=== PATIENT | female | born 2000 | race Caucasian/White ===

== ENCOUNTER 2023-12-30 10:22 | Outpatient (AMB) | payer OTHER, SELFPAY ==
--- NOTE | 2023-12-30 10:35 | MHC.OFFVISPS ---
Intake Vital Signs 12/30/23 16:01 Height 5 ft 7 in Weight 132 lb Intake Visit Reasons: depression, Psychogenic nonepileptic seizure, ADHD Intake Note: She tapered herself off the zoloft as she felt it was causing mood swings and SI. since then she has been doing well overall. She reports psychogenic seizures down to once a week which is better than several times a day. she feels the adderall has helpded her be less scattered and disorganized; she is doing better in school; less overwhelmed by stress; she saw a neurologist for psychogenic seizures- neurologist was at [facility]. Dr Lott saw her- Pt had MRI and it was normal. The 24 hour EEG results is pending. She tells me she and mother were glad she did not have any brain tumor as her father of brain cancer when she was very young. Pt had EEG and MRI. Initial EEG and MRI were normal; Pt feeling more hopeful. No SI or HI she is sleeping well- 7-8 hours a night Physical Plant Employee Required: No Allergies No Known Allergies Allergy (Verified 12/30/23 10:36) Medication List - Last Reconciled 12/30/23 by Kaylah Alaniz APRN amitriptyline mg PO dextroamphetamine-amphetamine 10 mg ER 1 cap PO QAM oxybutynin chloride ER 10 mg PO DAILY HPI- Psychiatric Chief Complaint: depression, Psychogenic nonepileptic seizure, ADHD Intake Note: 23 year old single female college student presenting with history of depression, anxiety, ADHD and psychogenic seizure disorder in need of continued medication management evaluation HPI Narrative: pt here for follow up for anxiety, depression, ADHD and psychgenic seizures She tapered herself off the zoloft as she felt it was causing mood swings and SI. since then she has been doing well overall. She reports psychogenic seizures down to once a week which is better than several times a day. she feels the adderall has helpded her be less scattered and disorganized; she is doing better in school; less overwhelmed by stress; she saw a neurologist for psychogenic seizures- neurologist was at [facility]. Dr Lott saw her- Pt had MRI and it was normal. The 24 hour EEG results is pending. She tells Past Psychiatric History: IN 2021, reports falling/tripping on stage at school; she hit head and went to ED She waited for several hours but wasn't seen and left because she didn't want wait longer. she reports no LOC. she does report a panic attack after she fell. She also had a syncopal episode 2 weeks later- she reports high stress with academics and friends; increased conflict with friends; felt bullied and ostracized by her roommates. Pt reports frequently forgetting to 30 mg amitriptyline and only taking 20mg at bedtime; she is struggling with eating and staying hydrated. this likely contributed to the syncopal episode; she will follow up with PCP. no problems with sleep . No SI or HI. expresses hope for future. She was ultimately dx with psychogenic seizures. Pt seen outpatient since 2019 by this web content writer - came to treatment reporting the following: depression, grief, sleep disruption, body image distortion, disordered eating always in special education classes; learned well with support; pt is dyslexic, cognitive disorder, executive functioning disorder. very high anxiety, always stressed and worried. achieving high but high cost. constantly anxious, talking to people makes her anxious. difficulty being around others don't like to be around others. feels depressed, sad. passive SI foggy thinking; night terrors- 1-2 times a week sometimes wake with fear; eating do symptoms- started losing a lot of weight - was restricting food. Began before covid. excessive working out. eating only 900 leonel per day and work out for 4 hours. was feeling faint. Working on eating better- seeing a wallet assembler. eating approx 1200 leonel. Continues outpatient therapy with Aubree Jules [facility] Pt started therapy with Aurora Jules at age 11 after losing her father due to brain cancer. Pts grief complicated by father's violent behavior from brain cancer. psychogenic seizures Seizure description: reports aura, weakness, can lay herself down or in seated position, brief memory loss during- last few seconds to 20 minutes. Duration of seizure: 10 Seizure frequency: once a week Exacerbated by: stress Age of seizure onset: 22 Family history of seizures: No History of febrile seizures: No Tongue biting: No Postictal confusion: No Drug levels: none Subjective Subjective Subjective Medication Compliance: Yes Side effects from medications: Yes (zoloft worsen mood and SI ) Review of Systems Medical Review of Systems: unchanged Review of Systems Review of Systems Yes all other systems are reviewed and are negative Mental Status Exam Mental Status Exam Narrative: Well-developed, well-nourished, in NAD. Alert and oriented x4. General appearance, well groomed, appropriately dressed for season and age. Musculoskeletal: No involuntary movements noted, motor activity calm, posture within normal limits. Manner/behavior: Calm, cooperative. Speech: Fluent, unimpaired, normal rate volume and rhythm. Mood: anxious. Affect: Mood congruent. Thought process/associations: Linear Thought content: Normal Delusions: None. Hallucinations: None. Suicidality/self destructive behavior: No SI, no intent or plan Homicidality/violence: none. Reliability: Good Judgment: Fair Insight: Fair MSK exam: Normal ambulation, no cogwheeling or rigidity noted. Assessment and Plan Assessment & Plan (1) Psychogenic nonepileptic seizure: Status: Acute Code(s): F44.5 - Conversion disorder with seizures or convulsions (2) ADHD (attention deficit hyperactivity disorder): Status: Acute Code(s): F90.9 - Attention-deficit hyperactivity disorder, unspecified type (3) Dyslexia: Status: Acute Code(s): R48.0 - Dyslexia and alexia (4) Generalized anxiety disorder: Status: Acute Code(s): F41.1 - Generalized anxiety disorder (5) Social anxiety disorder: Status: Acute Code(s): F40.10 - Social phobia, unspecified Plan pt is 23 yo old student with KATY, social anxiety, ADHD, and psychogenic seizure disorder in context of increased stress since becoming college student and navigating changing relationship with family and new friends at school. Plan continue amitriptyline continue adderall continue learning coping skills to reduce stress return in one month Medications: New amitriptyline 30 mg (3 x 10 mg) PO BEDTIME 30 days 90 tabs 1RF dextroamphetamine-amphetamine 10 mg ER 1 cap PO QAM 30 days 30 caps 0RF Counseling and coordination of Care Pt. Self Management counseling: Exercise, Maintenance-social rhythm, Muscle relaxation, Sleep hygiene and General coping skills Medication management counseling: Effectiveness, Side effects, Dosing range, Duration, Drug interaction and Adherence Diagnosis and Prognosis Counseling: Accuracy of diagnosis, Prognosis over time, Impact of diagnosis on life functions, Impact of family relationship, Problematic behaviors secondary to diagnosis and Adequacy of current interventions Details: I spent 45 minutes reviewing the record, seeing the patient and documenting in the medical record. Counseling provided to the patient/caregiver as outlined below. Addressed patient/caregiver concerns regarding current medication regime including effective adherence. Addressed patient/caregiver concerns regarding diagnosis and prognosis including accuracy of diagnosis, prognosis over time, impact of diagnosis. Addressed patient/caregiver concerns regarding impact of recent stressors. [facility] Social History: lives with mother; Pt at [facility]; one of 3 sibs; one sibling has autism; father from brain tumor when pt age 11. Substance History: none Trauma History: loss of father age 11 after illness Coding Level of Care Code Est Pt Level 5 (76710) Diagnoses Psychogenic nonepileptic seizure F44.5 ADHD (attention deficit hyperactivity disorder) F90.9 Dyslexia R48.0 Generalized anxiety disorder F41.1 Social anxiety disorder F40.10 Time Spent (min) 45
== END 2023-12-30 10:37 | disposition home or self-care (01) ==
LOC: HO.HOP 10:22
PROVIDERS: PCP Pediatrics Adolescent Medicine; Visit Provider Clinical Nurse Specialist Psychiatric/Mental Health
DX: F44.5 Conversion disorder with seizures or convulsions (principal); F90.9 Attention-deficit hyperactivity disorder, unspecified type; R48.0 Dyslexia and alexia; F41.1 Generalized anxiety disorder; F40.10 Social phobia, unspecified
CPT/HCPCS: 99215

== ENCOUNTER → 2023-12-30 10:22 | Outpatient (BNVA) | payer OTHER, SELFPAY | PROVIDERS: PCP Pediatrics Adolescent Medicine; Visit Provider Clinical Nurse Specialist Psychiatric/Mental Health ==

== ENCOUNTER 2024-01-27 10:27 | Outpatient (AMB) | payer OTHER, SELFPAY ==
--- NOTE | 2024-01-27 09:08 | A.OFFPSYCH_ITS ---
Intake Intake Visit Reasons: depression, Conversion disorder with seizures or convulsions, KATY (generalized anxiety disorder), Dysthymia, ADHD follow-up Operating Cost Clerk Required: No Allergies No Known Allergies Allergy (Verified 12/30/23 10:36) Medication List - Last Reconciled 01/27/24 by Kaylah Alaniz APRN amitriptyline 30 mg (3 x 10 mg) PO BEDTIME 30 days dextroamphetamine-amphetamine 10 mg ER 1 cap PO QAM 30 days oxybutynin chloride ER 10 mg PO DAILY HPI- Psychiatric Chief Complaint: depression, Conversion disorder with seizures or convulsions, KATY (generalized anxiety disorder), Dysthymia, ADHD follow-up HPI Narrative: Pt reports mood fair; she reports increased stress with school work, family conflict, and conflict with her BF. Pt reports she was home for a week for spring and her brother who has Bipolar Disorder was off his meds and she and he had an argument which was very difficult; Her BF is drinking increased alcohol and is emotionally unavailable. Pt reports being verbally impulsive at times, having more trouble staying on taks; more trouble focusing and getting tasks and ADLs done. She denies SI or HI. no psychosis. no medical changes Past Psychiatric History: [place] 2021, dx with psychogenic seizures. Pt seen outpatient since 2018 by this television script writer - came to treatment reporting the following: depression, grief, sleep disruption, body image distortion, disordered eating always in special education classes; learned well with support; pt is dyslexic, cognitive disorder, executive functioning disorder. very high anxiety, always stressed and worried. achieving high but high cost. constantly anxious, talking to people makes her anxious. difficulty being around others don't like to be around others. feels depressed, sad. passive SI foggy thinking; night terrors- 1-2 times a week sometimes wake with fear; eating do symptoms- started losing a lot of weight - was restricting food. Began before covid. excessive working out. eating only 900 leonel per day and work out for 4 hours. was feeling faint. Working on eating better- seeing a director of aviation. eating approx 1200 leonel. Continues outpatient therapy with Aubree Jules [facility] Pt started therapy with Aurora Jules at age 11 after losing her father due to brain cancer. Pts grief complicated by father's violent behavior from brain cancer. Panic attacks: Yes Agoraphobia: No Separation anxiety disorder: No Social phobia: No Specific phobia: No Hypochondriasis: No Body dysmorphic disorder: No Obsessive compulsive disorder: No Generalized anxiety: Yes Post traumatic stress disorder: Yes Previous psychiatric history: No Previous inpatient psychiatric hospitalization: No Other previous psychiatric treatment programs: none History of suicidal ideation: Yes History of suicide attempt: No Medically hospitalized: No History of self injurious behavior: No History of violence: No Current/previous psychiatrist: dudley Current/previous therapist: aubree CLINTON Subjective Subjective Subjective Medication Compliance: Yes Side effects from medications: No Review of Systems Medical Review of Systems: unchanged Mental Status Exam Mental Status Exam Patient Appearance: Well Grooomed and Appropriate Patient Orientation: Person, Place, Time and Situation Level of Consciousness: Awake, Appropriate and Alert Patient Behavior: Appropriate and Cooperative Mood Description: Anxious and Sad Affect Description: Anxious, Flat and Sad Patient Cognition Impaired: No Ability to Follow Directions: Good Speech Pattern: Clear Memory Description: Intact Hallucinations: None Delusions: Not Present Thought Process: Intact and Goal Oriented Thought Content: positive for Intact and positive for Goal Oriented Judgement: Fair Assessment and Plan Assessment & Plan (1) Generalized anxiety disorder: Status: Acute Code(s): F41.1 - Generalized anxiety disorder (2) Conversion disorder with seizures or convulsions: Code(s): F44.5 - Conversion disorder with seizures or convulsions (3) Dysthymia: Code(s): F34.1 - Dysthymic disorder Plan continue medications as prescribed Add adderall IR 5mg take 1/2 to 1 daily as needed for school work/task completion. Call TW if moodiness or anxiety increases Medications: New dextroamphetamine-amphetamine 5 mg (Adderall) Partial Fill upon patient request. 5 mg PO DAILY 30 tabs 0RF Refilled amitriptyline 30 mg (3 x 10 mg) PO BEDTIME 30 days 90 tabs 1RF dextroamphetamine-amphetamine 10 mg ER 1 cap PO QAM 30 days 30 caps 0RF Counseling and coordination of Care Pt. Self Management counseling: Breathing, Exercise, Maintenance-social rhythm, Mod caffeine/ETOH intake, Sleep hygiene and Behavior activation Medication management counseling: Effectiveness, Side effects, Dosing range, Duration, Drug interaction and Adherence Diagnosis and Prognosis Counseling: Accuracy of diagnosis, Prognosis over time, Impact of diagnosis on life functions, Impact of family relationship, Problematic behaviors secondary to diagnosis and Adequacy of current interventions Details: I spent 30] minutes reviewing the record, seeing the patient and documenting in the medical record. Counseling provided to the patient/caregiver as outlined below. Addressed patient/caregiver concerns regarding current medication regime including effective adherence. Addressed patient/caregiver concerns regarding diagnosis and prognosis including accuracy of diagnosis, prognosis over time, impact of diagnosis. Addressed patient/caregiver concerns regarding impact of recent stressors. [facility] Social History: lives with mother; Pt at [facility]; one of 3 sibs; one sibling has autism; father from brain tumor when pt age 11. Substance History: none Trauma History: loss of father age 11 after illness Coding Level of Care Code Est Pt Level 4 (69362) Diagnoses Generalized anxiety disorder F41.1 Conversion disorder with seizures or convulsions F44.5 Dysthymia F34.1
== END 2024-01-27 12:07 | disposition home or self-care (01) ==
LOC: HO.HOP 10:27
PROVIDERS: PCP Pediatrics Adolescent Medicine; Visit Provider Clinical Nurse Specialist Psychiatric/Mental Health
DX: F41.1 Generalized anxiety disorder (principal); F44.5 Conversion disorder with seizures or convulsions; F34.1 Dysthymic disorder
CPT/HCPCS: 99214

== ENCOUNTER → 2024-01-27 10:27 | Outpatient (BNVA) | payer OTHER, SELFPAY | PROVIDERS: PCP Pediatrics Adolescent Medicine; Visit Provider Clinical Nurse Specialist Psychiatric/Mental Health ==

== ENCOUNTER 2024-02-24 11:02 | Outpatient (AMB) | payer OTHER, SELFPAY ==
--- NOTE | 2024-02-24 11:04 | A.OFFPSYCH_ITS ---
Intake Vital Signs 02/24/24 11:30 Height 5 ft 7 in Weight 150 lb Intake Visit Reasons: depression, Anxiety, ADHD Central Lab Technician Required: No Allergies No Known Allergies Allergy (Verified 12/30/23 10:36) Medication List - Last Reconciled 02/24/24 by Kaylah Alaniz APRN amitriptyline 30 mg (3 x 10 mg) PO BEDTIME 30 days dextroamphetamine-amphetamine 10 mg ER 1 cap PO QAM 30 days dextroamphetamine-amphetamine 5 mg (Adderall) 5 mg PO DAILY oxybutynin chloride ER 10 mg PO DAILY HPI- Psychiatric Chief Complaint: depression, Anxiety, ADHD Intake Note: pt seeen for follow up re: Depression, anxiety, ADHD HPI Narrative: pt reports doing well overall but has had mote stress lately as the demands at school have increased; she is finishing up finals; she volunteers for many activities and sometimes is overbooked; she is very hard on self about her perf ormance. she has trouble coping when the stress is high. it is hard for her to rest. She reports reducing the amitriptyline to 50 mg at bedtime due to 75 mg making her very sleepy. she denies SI or HI. no hallucinations. compliant with meds and feel they are helpful. she continues with therapy. Shereports she has had 2 episodes of seizure like behavior when very stressed about obligations /activities she had and fearing she wouldn''t meet her standards. Past Psychiatric History: [place] 2021, dx with psychogenic seizures. Pt seen outpatient since 2018 by this customs entry writer - came to treatment reporting the following: depression, grief, sleep disruption, body image distortion, disordered eating always in special education classes; learned well with support; pt is dyslexic, cognitive disorder, executive functioning disorder. very high anxiety, always stressed and worried. achieving high but high cost. constantly anxious, talking to people makes her anxious. difficulty being around others don't like to be around others. feels depressed, sad. passive SI foggy thinking; night terrors- 1-2 times a week sometimes wake with fear; eating do symptoms- started losing a lot of weight - was restricting food. Began before covid. excessive working out. eating only 900 leonel per day and work out for 4 hours. was feeling faint. Working on eating better- seeing a review appraiser. eating approx 1200 leonel. Continues outpatient therapy with Aubree Jules [facility] Pt started therapy with Aurora Jules at age 11 after losing her father due to brain cancer. Pts grief complicated by father's violent behavior from brain cancer. Subjective Subjective Subjective Medication Compliance: Yes Side effects from medications: No Review of Systems Medical Review of Systems: unchanged Review of Systems Review of Systems Yes all other systems are reviewed and are negative Mental Status Exam Mental Status Exam Patient Appearance: Well Grooomed and Appropriate Patient Orientation: Person, Place, Time and Situation Level of Consciousness: Awake Patient Behavior: Appropriate and Cooperative Mood Description: Anxious Affect Description: Anxious Patient Cognition Impaired: No Ability to Follow Directions: Good Speech Pattern: Clear and Soft-Spoken Memory Description: Intact Hallucinations: None Delusions: Not Present Thought Process: Intact Thought Content: positive for Intact and positive for Goal Oriented Judgement: Fair Telehealth Telehealth Telehealth Platform: Telephone Location of provider rendering services: practice address Location of patient: other ([facility] ) Patient Identification confirmed using: Name, : Yes Telehealth method: video Patient verbally consented to treatment: Yes Patient verbally consented to billing insurance company: Yes Patient informed of any privacy concerns related to visit: Yes Minutes spent on Phone/Video with Pt.: 30 Assessment and Plan Assessment & Plan (1) ADHD (attention deficit hyperactivity disorder): Status: Acute Qualifiers: Attention deficit-hyperactivity disorder type: predominantly inattentive Qualified Code(s): F90.0 - Attention-deficit hyperactivity disorder, predominantly inattentive type Code(s): F90.9 - Attention-deficit hyperactivity disorder, unspecified type (2) Generalized anxiety disorder: Status: Acute Code(s): F41.1 - Generalized anxiety disorder (3) Social anxiety disorder: Status: Acute Code(s): F40.10 - Social phobia, unspecified (4) Psychogenic nonepileptic seizure: Status: Acute Code(s): F44.5 - Conversion disorder with seizures or convulsions Plan continue meds as prescribed continue therapy Medications: Changed From amitriptyline 30 mg (3 x 10 mg) PO BEDTIME 30 days 90 tabs 1RF To amitriptyline 20 mg (2 x 10 mg) PO BEDTIME 30 days 60 tabs 2RF Refilled dextroamphetamine-amphetamine 10 mg ER 1 cap PO QAM 30 days 30 caps 0RF dextroamphetamine-amphetamine 5 mg (Adderall) Partial Fill upon patient request. 5 mg PO DAILY 30 tabs 0RF Counseling and coordination of Care Pt. Self Management counseling: Maintenance-social rhythm, Mindfulness, Mod caffeine/ETOH intake, Sleep hygiene, Behavior activation, Cognitive restructuring and General coping skills Medication management counseling: Effectiveness, Side effects, Duration, Drug interaction and Adherence Diagnosis and Prognosis Counseling: Accuracy of diagnosis, Prognosis over time, Impact of diagnosis on life functions, Impact of family relationship, Problematic behaviors secondary to diagnosis and Adequacy of current interventions Details: I spent 33 minutes reviewing the record, seeing the patient and documenting in the medical record. Counseling provided to the patient/caregiver as outlined below. Addressed patient/caregiver concerns regarding current medication regime including effective adherence. Addressed patient/caregiver concerns regarding diagnosis and prognosis including accuracy of diagnosis, prognosis over time, impact of diagnosis. Addressed patient/caregiver concerns regarding impact of recent stressors. [facility] Social History: lives with mother; Pt at [facility]; one of 3 sibs; one sibling has autism; father from brain tumor when pt age 11. Substance History: none Trauma History: loss of father age 11 after illness Coding Level of Care Code Tele Est Pt Level 4 (46146) Diagnoses Attention deficit hyperactivity disorder (ADHD), predominantly inattentive type F90.0 Attention deficit-hyperactivity disorder type: predominantly inattentive Generalized anxiety disorder F41.1 Social anxiety disorder F40.10 Psychogenic nonepileptic seizure F44.5
== END 2024-02-24 11:29 | disposition home or self-care (01) ==
LOC: HO.HOP 11:02
PROVIDERS: PCP Pediatrics Adolescent Medicine; Visit Provider Clinical Nurse Specialist Psychiatric/Mental Health
DX: F90.0 Attention-deficit hyperactivity disorder, predominantly inattentive type (principal); F41.1 Generalized anxiety disorder; F40.10 Social phobia, unspecified; F44.5 Conversion disorder with seizures or convulsions
CPT/HCPCS: 99214

== ENCOUNTER → 2024-02-24 11:02 | Outpatient (BNVA) | payer OTHER, SELFPAY | PROVIDERS: PCP Pediatrics Adolescent Medicine; Visit Provider Clinical Nurse Specialist Psychiatric/Mental Health ==

== ENCOUNTER 2024-03-20 10:44 | Outpatient (AMB) | payer OTHER, SELFPAY ==
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
== END 2024-03-20 11:40 | disposition home or self-care (01) ==
LOC: HO.HOP 10:44
PROVIDERS: PCP Pediatrics Adolescent Medicine; Visit Provider Clinical Nurse Specialist Psychiatric/Mental Health
DX: F40.10 Social phobia, unspecified (principal); F44.5 Conversion disorder with seizures or convulsions; F41.1 Generalized anxiety disorder; F90.0 Attention-deficit hyperactivity disorder, predominantly inattentive type
CPT/HCPCS: 99214

== ENCOUNTER → 2024-03-20 10:44 | Outpatient (BNVA) | payer OTHER, SELFPAY | PROVIDERS: PCP Pediatrics Adolescent Medicine; Visit Provider Clinical Nurse Specialist Psychiatric/Mental Health ==

== ENCOUNTER 2024-05-22 08:59 | Outpatient (AMB) | payer OTHER, SELFPAY ==
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
== END 2024-05-22 11:23 | disposition home or self-care (01) ==
LOC: HO.HOP 08:59
PROVIDERS: PCP Pediatrics Adolescent Medicine; Visit Provider Clinical Nurse Specialist Psychiatric/Mental Health
DX: F44.5 Conversion disorder with seizures or convulsions (principal); F40.10 Social phobia, unspecified; F41.1 Generalized anxiety disorder; R48.0 Dyslexia and alexia; F90.0 Attention-deficit hyperactivity disorder, predominantly inattentive type
CPT/HCPCS: 99214

== ENCOUNTER → 2024-05-22 08:59 | Outpatient (BNVA) | payer OTHER, SELFPAY | PROVIDERS: PCP Pediatrics Adolescent Medicine; Visit Provider Clinical Nurse Specialist Psychiatric/Mental Health ==

== ENCOUNTER 2024-07-09 09:22 | Outpatient (AMB) | payer OTHER, SELFPAY ==
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
== END 2024-07-09 09:24 | disposition home or self-care (01) ==
LOC: HO.HOP 09:22
PROVIDERS: PCP Pediatrics Adolescent Medicine; Visit Provider Clinical Nurse Specialist Psychiatric/Mental Health
DX: F40.10 Social phobia, unspecified (principal); F44.5 Conversion disorder with seizures or convulsions; F41.1 Generalized anxiety disorder; R48.0 Dyslexia and alexia; F90.0 Attention-deficit hyperactivity disorder, predominantly inattentive type
CPT/HCPCS: 99214

== ENCOUNTER → 2024-07-09 09:22 | Outpatient (BNVA) | payer OTHER, SELFPAY | PROVIDERS: PCP Pediatrics Adolescent Medicine; Visit Provider Clinical Nurse Specialist Psychiatric/Mental Health ==

== ENCOUNTER 2024-09-10 11:31 | Outpatient (AMB) | payer OTHER, SELFPAY ==
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
== END 2024-09-10 11:33 | disposition home or self-care (01) ==
LOC: HO.HOP 11:31
PROVIDERS: PCP Pediatrics Adolescent Medicine; Visit Provider Clinical Nurse Specialist Psychiatric/Mental Health
DX: F40.10 Social phobia, unspecified (principal); F44.5 Conversion disorder with seizures or convulsions; F41.1 Generalized anxiety disorder; F90.0 Attention-deficit hyperactivity disorder, predominantly inattentive type
CPT/HCPCS: 99214

== ENCOUNTER → 2024-09-10 11:31 | Outpatient (BNVA) | payer OTHER, SELFPAY | PROVIDERS: PCP Pediatrics Adolescent Medicine; Visit Provider Clinical Nurse Specialist Psychiatric/Mental Health ==

== ENCOUNTER 2024-10-09 10:12 | Outpatient (AMB) | payer OTHER, SELFPAY ==
--- NOTE | 2024-10-09 09:44 | MHC.OFFVISPS ---
Intake Intake Visit Reasons: depression Novelty Dipper Required: No Allergies No Known Allergies Allergy (Verified 12/30/23 10:36) Medication List - Last Reconciled 10/09/24 by Kaylah Alaniz APRN amitriptyline 30 mg (3 x 10 mg) PO BEDTIME betamethasone dipropionate 0.05% appl topical dextroamphetamine-amphetamine 10 mg ER 1 cap PO QAM 30 days dextroamphetamine-amphetamine 5 mg (Adderall) 5 mg PO DAILY lorazepam 1 mg PO BID PRN 15 days valacyclovir 500 mg PO BID HPI- Psychiatric Chief Complaint: depression HPI Narrative: Pt reports she is stable; she has high stress due to end of the projects and working 2 jobs. she is coping well overall; she is compliant with medications;no side effects. she reports 2 episodes of seizure like activity; she was with her BF and was sitting down when it happened so she did not get hurt; she says it was a few weeks ago when she was under higher stress and probably working too much. Past Psychiatric History: [place] 2021, dx with psychogenic seizures. Pt seen outpatient since 2018 by this account underwriter - came to treatment reporting the following: depression, grief, sleep disruption, body image distortion, disordered eating always in special education classes; learned well with support; pt is dyslexic, cognitive disorder, executive functioning disorder. very high anxiety, always stressed and worried. achieving high but high cost. constantly anxious, talking to people makes her anxious. difficulty being around others don't like to be around others. feels depressed, sad. passive SI foggy thinking; night terrors- 1-2 times a week sometimes wake with fear; eating do symptoms- started losing a lot of weight - was restricting food. Began before covid. excessive working out. eating only 900 leonel per day and work out for 4 hours. was feeling faint. Working on eating better- seeing a vice president lending. eating approx 1200 leonel. Continues outpatient therapy with Aubree Jules [facility] Pt started therapy with Aurora Jules at age 11 after losing her father due to brain cancer. Pts grief complicated by father's violent behavior from brain cancer. Subjective Subjective Subjective Medication Compliance: Yes Side effects from medications: No Review of Systems Medical Review of Systems: unchanged Mental Status Exam Mental Status Exam Patient Appearance: Well Grooomed and Appropriate Patient Orientation: Person, Place, Time and Situation Level of Consciousness: Awake and Appropriate Patient Behavior: Appropriate Mood Description: Anxious Affect Description: Anxious Patient Cognition Impaired: No Ability to Follow Directions: Good Speech Pattern: Clear and Appropriate Memory Description: Intact Hallucinations: None Delusions: Not Present Thought Process: Intact and Goal Oriented Thought Content: positive for Intact and positive for Goal Oriented Judgement: Good Telehealth Telehealth Telehealth Platform: Other (please specify) ([employer]) Location of provider rendering services: practice address Location of patient: address on file Patient Identification confirmed using: Name, : Yes Telehealth method: video Patient verbally consented to treatment: Yes Patient verbally consented to billing insurance company: Yes Patient informed of any privacy concerns related to visit: Yes Minutes spent on Phone/Video with Pt.: 30 Assessment and Plan Assessment & Plan (1) Fatigue: Status: Acute Code(s): R53.83 - Other fatigue (2) Psychogenic nonepileptic seizure: Status: Acute Code(s): F44.5 - Conversion disorder with seizures or convulsions (3) Social anxiety disorder: Status: Acute Code(s): F40.10 - Social phobia, unspecified (4) Generalized anxiety disorder: Status: Acute Code(s): F41.1 - Generalized anxiety disorder (5) Dyslexia: Status: Acute Code(s): R48.0 - Dyslexia and alexia (6) ADHD (attention deficit hyperactivity disorder): Status: Acute Qualifiers: Attention deficit-hyperactivity disorder type: predominantly inattentive Qualified Code(s): F90.0 - Attention-deficit hyperactivity disorder, predominantly inattentive type Code(s): F90.9 - Attention-deficit hyperactivity disorder, unspecified type Medications: Changed From dextroamphetamine-amphetamine 10 mg ER 1 cap PO QAM 30 days 30 caps 0RF To dextroamphetamine-amphetamine 10 mg ER for ADHD 1 cap PO QAM 60 caps 0RF 60 days From dextroamphetamine-amphetamine 5 mg (Adderall) Partial Fill upon patient request. 5 mg PO DAILY 30 tabs 0RF To dextroamphetamine-amphetamine 5 mg (Adderall) Partial Fill upon patient request. For ADHD 5 mg PO DAILY 60 tabs 0RF 60 days Refilled amitriptyline 30 mg (3 x 10 mg) PO BEDTIME 90 tabs 3RF Orders: Orders Complete Blood Count Auto Diff 10/09/24 R53.83 - Other fatigue Comprehensive Gaffney. Panel Fast 10/09/24 F44.5 - Conversion disorder with seizures or convulsions Counseling and coordination of Care Pt. Self Management counseling: Maintenance-social rhythm, Mod caffeine/ETOH intake, General coping skills and Problem solving Medication management counseling: Effectiveness, Side effects, Dosing range, Duration, Drug interaction and Adherence Diagnosis and Prognosis Counseling: Accuracy of diagnosis, Prognosis over time, Impact of diagnosis on life functions, Impact of family relationship, Problematic behaviors secondary to diagnosis and Adequacy of current interventions Details: I spent [] minutes reviewing the record, seeing the patient and documenting in the medical record. Counseling provided to the patient/caregiver as outlined below. Addressed patient/caregiver concerns regarding current medication regime including effective adherence. Addressed patient/caregiver concerns regarding diagnosis and prognosis including accuracy of diagnosis, prognosis over time, impact of diagnosis. Addressed patient/caregiver concerns regarding impact of recent stressors. [facility] Social History: lives with mother; Pt at [facility]; one of 3 sibs; one sibling has autism; father from brain tumor when pt age 11. Substance History: none Trauma History: loss of father age 11 after illness Coding Level of Care Code Tele Est Pt Level 4 (15970) Diagnoses Fatigue R53.83 Psychogenic nonepileptic seizure F44.5 Social anxiety disorder F40.10 Generalized anxiety disorder F41.1 Dyslexia R48.0 Attention deficit hyperactivity disorder (ADHD), predominantly inattentive type F90.0 Attention deficit-hyperactivity disorder type: predominantly inattentive
--- OUTSIDE RECORDS SUMMARY | 2024-10-09 10:14 | XMS_ITS ---
Author Name [facility] Organization Unknown History of Medication Use Medication Directions Dispensed Refills Start Date End Date Status valACYclovirTakeNo d ate recordedNo form recordedNo frequency recordedNo route recordedNo set duration recordedNo set duration amount recordedactiveNo dosage strength recordedNo dosage strength units of measure recorded 06/08/20 active LORazepamTakeNo date recordedNo form recordedNo frequency recordedNo route recordedNo set duration recordedNo set duration amount recordedactiveNo dosage strength recordedNo dosage strength units of measure recorded 06/08/20 active azithromycinTake 1 tablet (oral) 1 time per day for 5 days (Take 2 tablets day [id number] time per [id number] 06/08/20 active oxyBUTYnin chlorideTakeNo date recordedNo form recordedNo frequency recordedNo route recordedNo set duration recordedNo set duration amount recordedactiveNo dosage strength recordedNo dosage strength units of measure recorded 06/08/20 active AdderalLTakeNo date recordedNo form recordedNo frequency recordedNo route recordedNo set duration recordedNo set duration amount recordedactiveNo dosage strength recordedNo dosage strength units of measure recorded 06/08/20 active amitriptylineTakeNo date recordedNo form recordedNo frequency recordedNo route recordedNo set duration recordedNo set duration amount recordedactiveNo dosage strength recordedNo dosage strength units of measure recorded 06/08/20 active LORazepam (ATIVAN) 2 MG/ML injection Starting on Sat04/27/24 at 2135, For 1 Naheed Thomas: cabinet override 04/30/20 completed potassium chloride ER tablet 40 mEq 40 mEq, Oral, Once, On Sat04/28/24 at 0000, For 1 doseDo not crush or chew tablet.?To make a liquid dissolution from a tablet: ??1) Place the whole tablet(s) in approximately ? ? ? cup of water (4 fluid ounces). ??2) Allow approximately 2 minutes for the tablet(s) to disintegrate. ??3) Stir for about quinn 07/04/20 24 completed LORazepam (ATIVAN) 2 MG/ML injection 1 mg 1 mg, Intravenous, Once, On Sat04/27/24 at 2145, For 1 dose 04/30/20 24 completed diphenhydrAMINE (BENADRYL) 25 mg capsule Take 25 mg by mouth every 6 (six) hours as needed for itching (uses for sleep stopped taking in oct). 04/30/20 24 active ketorolac (TORADOL) injection 15 mg 15 mg, Intravenous, Once, On Sat04/28/24 at 0000, For 1 dose 04/30/20 24 completed LORazepam (ATIVAN) 1 MG tablet Take 1 tablet (1 mg total) by mouth every 6 (six) hours as needed for anxiety. 04/30/20 active potassium chloride ER (K-DUR,KLOR-CON) tablet 20 mEq Take 1 tablet (20 mEq total) by mouth 2 (two) times a day for 7 days. 04/30/20 active sodium chloride 0.9% bolus (NS) 1,000 mL 1,000 mL, Intravenous, at 1,000 mL/hr, Once, On Sat04/27/24 at 2100, For 1 dose 04/30/20 24 completed acetaminophen (TYLENOL) tablet 650 mg 650 mg, Oral, Once, On Sat04/28/24 at 0000, For 1 dose 04/30/20 24 completed albuterol (PROVENTIL) nebulizer solution 2.5 mg 2.5 mg, Nebulization, Once, On Sat04/27/24 at 2100, For 1 dose 04/30/20 24 completed dextroamphetamine-a mphetamine (ADDERALL XR) 10 MG extended release capsule Take 10 mg by mouth daily 04/13/20 22 active amitriptyline (ELAVIL) 10 MG tablet Take 20 mg by mouth daily 04/13/20 22 active cyproheptadine (PERIACTIN) 4 mg tablet Take 4 mg by mouth after dinner 04/13/20 22 active Problems Problem Status Onset Date Problem Type Date of Resolution Source *Contact/suspected exposure COVID-19 active 2024-06-06 ProblemAct [facility] Pharyngitis, acute streptococcal active 2024-06-06 ProblemAct [facility] Fibromyalgia active ProblemAct [facility] Herpesviral infection, unspecified active ProblemAct [facility] Migraine without aura, not intractable, without status migrainosus active ProblemAct [facility] COVID-19 active 2024-06-06 ProblemAct [facility] NE Mild anemia active EncounterDiagnosisAct [facility] Attention-deficit hyperactivity disorder, unspecified type active ProblemAct [facility] Hypokalemia active EncounterDiagnosisAct [facility] Seizure disorder (HCC) active EncounterDiagnosisAct [facility]
== END 2024-10-09 10:12 | disposition home or self-care (01) ==
LOC: HO.HOP 10:12
PROVIDERS: PCP Pediatrics Adolescent Medicine; Visit Provider Clinical Nurse Specialist Psychiatric/Mental Health
DX: F44.5 Conversion disorder with seizures or convulsions (principal); F40.10 Social phobia, unspecified; F41.1 Generalized anxiety disorder; R48.0 Dyslexia and alexia; F90.0 Attention-deficit hyperactivity disorder, predominantly inattentive type
CPT/HCPCS: 99214

== ENCOUNTER → 2024-10-09 10:12 | Outpatient (BNVA) | payer OTHER, SELFPAY | PROVIDERS: PCP Pediatrics Adolescent Medicine; Visit Provider Clinical Nurse Specialist Psychiatric/Mental Health ==

== ENCOUNTER 2024-12-28 10:16 | Outpatient (AMB) | payer OTHER, SELFPAY ==
--- NOTE | 2024-12-28 10:06 | MHC.OFFVISPS ---
Intake Intake Visit Reasons: depression General Forecaster Required: No Allergies No Known Allergies Allergy (Verified 12/30/23 10:36) Medication List - Last Reconciled 12/28/24 by Kaylah Alaniz APRN amitriptyline 30 mg (3 x 10 mg) PO BEDTIME betamethasone dipropionate 0.05% appl topical dextroamphetamine-amphetamine 10 mg ER 1 cap PO QAM 60 days dextroamphetamine-amphetamine 5 mg (Adderall) 5 mg PO DAILY 60 days lorazepam 1 mg PO BID PRN 15 days valacyclovir 500 mg PO BID HPI- Psychiatric Chief Complaint: depression HPI Narrative: Pt reports being very sick with viral infection and then bacterial pneumonia and sinusitis for several weeks; she has been feeling a bit better fro 4-5 days. she was on antibiotics; she reports mood good mostly because she feels better physically; she has had more anxiety; she has not been using the lorazepam; she is avoiding talking to her professors due to anxiety; no psychogenic seizures, no SI or HI; sleep is fair- some restlessness while sleeping. Past Psychiatric History: [place] 2021, dx with psychogenic seizures. Pt seen outpatient since 2018 by this chart writer - came to treatment reporting the following: depression, grief, sleep disruption, body image distortion, disordered eating always in special education classes; learned well with support; pt is dyslexic, cognitive disorder, executive functioning disorder. very high anxiety, always stressed and worried. achieving high but high cost. constantly anxious, talking to people makes her anxious. difficulty being around others don't like to be around others. feels depressed, sad. passive SI foggy thinking; night terrors- 1-2 times a week sometimes wake with fear; eating do symptoms- started losing a lot of weight - was restricting food. Began before covid. excessive working out. eating only 900 leonel per day and work out for 4 hours. was feeling faint. Working on eating better- seeing a bulwark carpenter. eating approx 1200 leonel. Continues outpatient therapy with Aubree Jules [facility] Pt started therapy with Aurora Jules at age 11 after losing her father due to brain cancer. Pts grief complicated by father's violent behavior from brain cancer. Subjective Subjective Subjective Medication Compliance: Yes Side effects from medications: No Review of Systems Medical Review of Systems: unchanged Mental Status Exam Mental Status Exam Patient Appearance: Well Grooomed Patient Orientation: Person, Place, Time and Situation Level of Consciousness: Awake and Appropriate Patient Behavior: Appropriate and Cooperative Mood Description: Cheerful and Anxious Affect Description: Anxious Patient Cognition Impaired: No Ability to Follow Directions: Good Speech Pattern: Clear and Appropriate Memory Description: Intact Hallucinations: None Delusions: Not Present Thought Process: Intact and Goal Oriented Thought Content: positive for Intact and positive for Goal Oriented Judgement: Good Telehealth Telehealth Telehealth Platform: Other (please specify) ([email or web address]) Location of provider rendering services: practice address Location of patient: address on file Patient Identification confirmed using: Name, : Yes Telehealth method: video Patient verbally consented to treatment: Yes Patient verbally consented to billing insurance company: Yes Patient informed of any privacy concerns related to visit: Yes Minutes spent on Phone/Video with Pt.: 20 Assessment and Plan Assessment & Plan (1) Fatigue: Status: Acute Qualifiers: Fatigue type: postviral fatigue syndrome Qualified Code(s): G93.31 - Postviral fatigue syndrome Code(s): R53.83 - Other fatigue (2) Social anxiety disorder: Status: Acute Code(s): F40.10 - Social phobia, unspecified (3) Psychogenic nonepileptic seizure: Status: Acute Code(s): F44.5 - Conversion disorder with seizures or convulsions (4) Generalized anxiety disorder: Status: Acute Code(s): F41.1 - Generalized anxiety disorder (5) ADHD (attention deficit hyperactivity disorder): Status: Acute Qualifiers: Attention deficit-hyperactivity disorder type: predominantly inattentive Qualified Code(s): F90.0 - Attention-deficit hyperactivity disorder, predominantly inattentive type Code(s): F90.9 - Attention-deficit hyperactivity disorder, unspecified type Plan continue medications as is return in 2 months for f/u Medications: Refilled amitriptyline 30 mg (3 x 10 mg) PO BEDTIME 90 tabs 2RF dextroamphetamine-amphetamine 10 mg ER for ADHD 1 cap PO QAM 60 caps 0RF 60 days dextroamphetamine-amphetamine 5 mg (Adderall) Partial Fill upon patient request. For ADHD 5 mg PO DAILY 60 tabs 0RF 60 days lorazepam 1 mg PO BID PRN 30 tabs 1RF panic attack(s) 15 days Counseling and coordination of Care Pt. Self Management counseling: Maintenance-social rhythm, Med illness tx adherence, Mod caffeine/ETOH intake, Nutrition education and improvement and General coping skills Medication management counseling: Effectiveness, Side effects, Dosing range, Duration, Drug interaction and Adherence Diagnosis and Prognosis Counseling: Accuracy of diagnosis, Prognosis over time, Impact of diagnosis on life functions, Impact of family relationship, Problematic behaviors secondary to diagnosis and Adequacy of current interventions Details: I spent 30 minutes reviewing the record, seeing the patient and documenting in the medical record. Counseling provided to the patient/caregiver as outlined below. Addressed patient/caregiver concerns regarding current medication regime including effective adherence. Addressed patient/caregiver concerns regarding diagnosis and prognosis including accuracy of diagnosis, prognosis over time, impact of diagnosis. Addressed patient/caregiver concerns regarding impact of recent stressors. [facility] Social History: lives with mother; Pt at [facility]; one of 3 sibs; one sibling has autism; father from brain tumor when pt age 11. Substance History: none Trauma History: loss of father age 11 after illness Coding Level of Care Code Tele Est Pt Level 4 (69453) Diagnoses Postviral fatigue syndrome G93.31 Fatigue type: postviral fatigue syndrome Social anxiety disorder F40.10 Psychogenic nonepileptic seizure F44.5 Generalized anxiety disorder F41.1 Attention deficit hyperactivity disorder (ADHD), predominantly inattentive type F90.0 Attention deficit-hyperactivity disorder type: predominantly inattentive
--- OUTSIDE RECORDS SUMMARY | 2024-12-28 11:49 | XMS_ITS | Clinical Summary ---
Author Organization [facility] Address [address] [place] [address] Care Team Providers Care Noxious Weeds And Pest Inspector Name Role Phone Unavailable Primary Care Provider Unavailabl e Social History Tobacco Use Types Packs/Day Years Used Date Smoking Tobacco: Never Comments Unknown Sex and Gender Information Value Date Recorded Sex Assigned at Not on file Legal Sex Female 1:34 PM EDT Gender Identity Not on file Sexual Orientation Not on file Obstetrics History Plan of Treatment Health Maintenance Due Date Last Done Comments Gonorrhea/Chlamydia Screening 2002 HPV Vaccines (1 - 3-dose series) 2017 Meningococcal B Vacine (1 of 2 - Standard) 2018 DTaP,Tdap,and Td Vaccines (1 - Tdap) 2021 Hepatitis B Vaccines (1 of 3 - 19+ 3-dose series) 2021 Cervical Cancer Screening: P ap Smear 2023 COVID-19 Vaccine ( - 2023-2 5 season) 2024 Influenza Vaccine (#1) 2024 Depression Screening 08/10/2024 HIV Screening 08/10/2024 Hepatitis C Screening 08/10/2024 Social Influencers of Health Screening 08/10/2024 HIB Vaccines Aged Out No longer eligi ble based on patient's age to complete this topic Hepatitis A Vaccines Aged Out No long er eligible based on patient's age to complete this topic IPV Vaccines Aged Out No longer eligi ble based on patient's age to complete this topic MMR Vaccines Aged Out No longer eligi ble based on patient's age to complete this topic Meningococcal ACWY Vaccine Aged Out N o longer eligible based on patient's age to complete this topic Pneumococcal Vaccine: Pediat rics (0 to 5 Years) and At-Risk Patients (6 to 64 Years) Aged Out No longer eligible b ased on patient's age to complete this topic RSV Immunization Patients Un joaquín 20 months Aged Out No longer eligible b ased on patient's age to complete this topic Varicella Vaccines Aged Out No longer eligible based on patient's age to complete this topic
--- OUTSIDE RECORDS SUMMARY | 2024-12-28 11:49 | XMS_ITS | Clinical Summary ---
Author Organization [facility] Address [address] [place] [id number] Care Team Providers Care Model Maker Scale Name Role Phone Carl Kang MD Primary Care Provider [phone] Source Comments Please note that some or all of the patient's information could have additional privacy protections. State laws allow health care providers to render certain types of treatment to minors without parental consent. Please do not assume that this information can be shared solely by obtaining just the consent of the patient's parent/guardian. Please determine if all or part of the patient's care was rendered without parent/guardian involvement. And, if so, obtain the minor's consent prior to disclosure.[facility] Allerg[facility] Active Allergy Reactions Criticality Noted Date Comments Mold 04/02/2022 Polyoxyethylated Stearyl Alc ohol (Steareth-30) 04/02/2022 Medications amitriptyline (ELAVIL) 10 MG tablet Take 20 mg by mouth daily 01/11/2022 Active dextroamphetamin e-amphetamine (ADDERALL XR) 10 MG extended release capsule Take 10 mg by mouth daily 01/16/2022 Active cyproheptadine (PERIACTIN) 4 mg tablet Take 4 mg by mouth after dinner Active Active Problems Problem Noted Date Diagnosed Date Fibromyalgia 04/10/2022 Menorrhagia 04/10/2022 Family history of autoimmune disorder 04/10/2022 Rash and other nonspecific skin eruption 022 Social History Tobacco Use Types Packs/Day Years Used Date Smoking Tobacco: Never Assessed Other Needs Answer Date Recorded Anything else about your child you'd like help w ith? Not on file 07/12/2023 Share good news about positive changes: Not on f ile 07/12/2023 Comments No Sex and Gender Information Value Date Recorded Sex Assigned at Not on file Legal Sex Female 11:28 AM EDT Gender Identity Not on file Sexual Orientation Not on file Last Filed Vital Signs Vital Sign Reading Time Taken Comments Blood Pressure 115/75 04/02/2022 11:30 AM EDT Pulse 88 04/02/2022 11:30 AM EDT Temperature 36.7 ??C (98 ??F) 04/02/2022 11: 30 AM EDT Respiratory Rate - - Oxygen Saturation - - Inhaled Oxygen Concentration - - Weight 65.3 kg (143 lb 15.4 oz) 022 11:30 AM EDT Height 167.6 cm (5' 6 ) 04/02/2022 11:3 0 AM EDT Body Mass Index 23.24 04/02/2022 11:30 AM EDT Plan of Treatment Health Maintenance Due Date Last Done Comments DTaP/TDAP/TD VACCINES (1 - Tdap) 2009 ADOLESCENT HIV SCREENING 2015 COVID-19 Vaccine (2023-2 5 season) 2024 INFLUENZA (#1) 2024 NIRSEVIMAB VACCINES UNDER 8 MONTHS Aged Out No longer eligible based on patient's age to complete this topic Insurance [place] [id number] Care Teams Model Maker Scale Relationship Specialty Start Date End Date Carl Kang MD [address] [facility] [place] [id number] PCP - General Adolescent Medicine 01/09/22
--- OUTSIDE RECORDS SUMMARY | 2024-12-28 11:49 | XMS_ITS | Clinical Summary ---
Author Organization [facility] Address [address] [place] [address] Care Team Providers Care Staffing Branch Manager Name Role Phone Unavailable Primary Care Provider Unavailabl e Allergies No known active allergies Medications Medication Sig Dispensed Refills Start Date End Date Status diphenhydrAMINE (BENADRYL) 25 mg capsule Take 25 mg by mouth every 6 (six) hours as needed for itching (uses for sleep stopped taking in oct). 0 Active LORazepam (ATIVAN) 1 MG tablet Take 1 tablet (1 mg total) by mouth every 6 (six) hours as needed for anxiety. 12 tablet 0 04/28/2024 Active Active Problems No known active problems Social History Tobacco Use Types Packs/Day Years Used Date Smoking Tobacco: Never Sex and Gender Information Value Date Recorded Sex Assigned at Female 04/27/2024 9:27 PM EDT Gender Identity Not on file Sexual Orientation Not on file Job Start Date Occupation Industry Not on file Not on file Not on file Last Filed Vital Signs Vital Sign Reading Time Taken Comments Blood Pressure 119/72 04/27/2024 9:39 PM EDT Pulse 92 04/27/2024 9:39 PM EDT Temperature 36.8 ??C (98.2 ??F) 04/27/2024 9:39 PM ED T Respiratory Rate 15 04/27/2024 9:39 PM EDT Oxygen Saturation 100% 04/27/2024 9:39 PM EDT Inhaled Oxygen Concentration - - Weight 45 kg (99 lb 3.3 oz) 04/27/2024 8:43 PM E DT Height 165.1 cm (5' 5 ) 09/18/2015 9:27 PM EST Body Mass Index - - Plan of Treatment Health Maintenance Due Date Last Done Comments Hepatitis B Vaccines (1 of 3 - 3-dose series) 2002 Hepatitis C Screening 2002 COVID-19 Vaccine (#1) 2002 Depression Screening 2014 Gonorrhea and Chlamydia Screening 2015 Preventative Health Evaluation 2020 DTap / Tdap / Td (1 - Tdap) 2021 Cervical Cancer Screening (P ap Smear) 2023 Influenza Vaccine (#1) 2024 Pneumococcal Vaccine Aged Out No long er eligible based on patient's age to complete this topic RSV Ped < 20 months Aged Out No longe r eligible based on patient's age to complete this topic
== END 2024-12-28 10:17 | disposition home or self-care (01) ==
LOC: HO.HOP 10:16
PROVIDERS: PCP Pediatrics Adolescent Medicine; Visit Provider Clinical Nurse Specialist Psychiatric/Mental Health
DX: F40.10 Social phobia, unspecified (principal); G93.31 Postviral fatigue syndrome; F44.5 Conversion disorder with seizures or convulsions; F41.1 Generalized anxiety disorder; F90.0 Attention-deficit hyperactivity disorder, predominantly inattentive type
CPT/HCPCS: 98004

== ENCOUNTER 2025-03-08 10:37 | Outpatient (AMB) | payer OTHER, SELFPAY ==
--- NOTE | 2025-03-08 09:55 | MHC.OFFVISPS ---
Intake Intake Visit Reasons: depression Allergies No Known Allergies Allergy (Verified 12/30/23 10:36) Medication List - Last Reconciled 03/08/25 by Kaylah Alaniz APRN amitriptyline 30 mg (3 x 10 mg) PO BEDTIME betamethasone dipropionate 0.05% appl topical dextroamphetamine-amphetamine 10 mg ER 1 cap PO QAM 60 days dextroamphetamine-amphetamine 5 mg (Adderall) 5 mg PO DAILY 60 days lorazepam 1 mg PO BID PRN 15 days valacyclovir 500 mg PO BID HPI- Psychiatric Chief Complaint: depression HPI Narrative: pt reports improvement in mood and functioning; she reports she will graduate from college next week. she reports some stress off and on over past few weeks; her mother's moods are still difficult to tolerate but pt coping well. Pt is future oriented and has an merchandising internship planned for summer. she is med compliant ; she reports no side effects; she reports no psychogenic seizures in months. She denies SI or HI Past Psychiatric History: [place], dx with psychogenic seizures. Pt seen outpatient since 2018 by this insurance underwriter - came to treatment reporting the following: depression, grief, sleep disruption, body image distortion, disordered eating always in special education classes; learned well with support; pt is dyslexic, cognitive disorder, executive functioning disorder. very high anxiety, always stressed and worried. achieving high but high cost. constantly anxious, talking to people makes her anxious. difficulty being around others don't like to be around others. feels depressed, sad. passive SI foggy thinking; night terrors- 1-2 times a week sometimes wake with fear; eating do symptoms- started losing a lot of weight - was restricting food. Began before covid. excessive working out. eating only 900 leonel per day and work out for 4 hours. was feeling faint. Working on eating better- seeing a shop laborer. eating approx 1200 leonel. Continues outpatient therapy with Aubree Jules [facility] Pt started therapy with Aurora Jules at age 11 after losing her father due to brain cancer. Pts grief complicated by father's violent behavior from brain cancer. Subjective Subjective Subjective Medication Compliance: Yes Side effects from medications: No Review of Systems Medical Review of Systems: unchanged Mental Status Exam Mental Status Exam Patient Appearance: Well Grooomed and Appropriate Patient Orientation: Person, Place, Time and Situation Level of Consciousness: Awake and Appropriate Patient Behavior: Appropriate, Talkative and Good Eye Contact Mood Description: Happy and Cheerful Affect Description: Happy and Cheerful Patient Cognition Impaired: No Ability to Follow Directions: Good Speech Pattern: Clear and Appropriate Memory Description: Intact Hallucinations: None Delusions: Not Present Thought Process: Intact and Goal Oriented Thought Content: positive for Intact and positive for Goal Oriented Judgement: Fair Telehealth Telehealth Telehealth Platform: Other (please specify) ([email or web address]) Location of provider rendering services: practice address Location of patient: address on file Patient Identification confirmed using: Name, : Yes Telehealth method: video Patient verbally consented to treatment: Yes Patient verbally consented to billing insurance company: Yes Patient informed of any privacy concerns related to visit: Yes Minutes spent on Phone/Video with Pt.: 30 Assessment and Plan Assessment & Plan (1) ADHD (attention deficit hyperactivity disorder): Status: Acute Qualifiers: Attention deficit-hyperactivity disorder type: predominantly inattentive Qualified Code(s): F90.0 - Attention-deficit hyperactivity disorder, predominantly inattentive type Code(s): F90.9 - Attention-deficit hyperactivity disorder, unspecified type (2) Dyslexia: Status: Acute Code(s): R48.0 - Dyslexia and alexia (3) Generalized anxiety disorder: Status: Acute Code(s): F41.1 - Generalized anxiety disorder (4) Psychogenic nonepileptic seizure: Status: Acute Code(s): F44.5 - Conversion disorder with seizures or convulsions (5) Social anxiety disorder: Status: Acute Code(s): F40.10 - Social phobia, unspecified Plan continue medications as per below follow up in 2 months Medications: Refilled dextroamphetamine-amphetamine 5 mg (Adderall) Partial Fill upon patient request. For ADHD 5 mg PO DAILY 60 tabs 0RF 60 days lorazepam 1 mg PO BID PRN 30 tabs 1RF panic attack(s) 15 days amitriptyline 30 mg (3 x 10 mg) PO BEDTIME 90 tabs 2RF dextroamphetamine-amphetamine 10 mg ER for ADHD 1 cap PO QAM 60 caps 0RF 60 days Counseling and coordination of Care Pt. Self Management counseling: Maintenance-social rhythm, Nutrition education and improvement, Sleep hygiene and General coping skills Medication management counseling: Effectiveness, Side effects, Dosing range, Duration, Drug interaction and Adherence Diagnosis and Prognosis Counseling: Accuracy of diagnosis, Prognosis over time, Impact of diagnosis on life functions, Impact of family relationship, Problematic behaviors secondary to diagnosis and Adequacy of current interventions Details: I spent 35 minutes reviewing the record, seeing the patient and documenting in the medical record. Counseling provided to the patient/caregiver as outlined below. Addressed patient/caregiver concerns regarding current medication regime including effective adherence. Addressed patient/caregiver concerns regarding diagnosis and prognosis including accuracy of diagnosis, prognosis over time, impact of diagnosis. Addressed patient/caregiver concerns regarding impact of recent stressors. [facility] Social History: lives with mother; Pt at [facility]; one of 3 sibs; one sibling has autism; father from brain tumor when pt age 11. Substance History: none Trauma History: loss of father age 11 after illness Coding Level of Care Code Tele Est Pt Level 4 (05568) Diagnoses Attention deficit hyperactivity disorder (ADHD), predominantly inattentive type F90.0 Attention deficit-hyperactivity disorder type: predominantly inattentive Dyslexia R48.0 Generalized anxiety disorder F41.1 Psychogenic nonepileptic seizure F44.5 Social anxiety disorder F40.10
--- OUTSIDE RECORDS SUMMARY | 2025-03-08 11:23 | XMS_ITS | Clinical Summary ---
Author Organization [facility] Address [address] [place] [address] Care Team Providers Care Tire Center Manager Name Role Phone Unavailable Primary Care [...]
--- OUTSIDE RECORDS SUMMARY | 2025-03-08 11:23 | XMS_ITS | Clinical Summary ---
Author Organization [facility] Address [address] [place] [address] Care Team Providers Care Poultry Helper Name Role Phone Jenn Yates MD Primary Care Provider [phone] Allergies No known active allergies Medications doxycycline (MONODOX) 100 MG capsuleIndicati ons:Tick bite of right knee, initial encounter Take 2 capsules (200 mg total) by mouth 1 time. 2 capsule 02/28/20 25 Active Problems No known active problems Encounters Date Type Department Care Team Description 02/27/2025 2:35 PM EDT Office Visit [facility] [address] [place] [address] Leonard Jenkins MD Servello, Aldo R II, PA-C Tick bite of right knee, initial encounter (Primary Dx) 02/27/2025 Travel from Last 3 Months Social History Tobacco Use Types Packs/Day Years Used Date Smoking Tobacco: Never Assessed Comments Unknown Sex and Gender Information Value Date Recorded Sex Assigned at Not on file Legal Sex Female 2:30 PM EDT Gender Identity Not on file Sexual Orientation Not on file Last Filed Vital Signs Vital Sign Reading Time Taken Comments Blood Pressure 114/72 02/27/2025 2:49 PM EDT Pulse 62 02/27/2025 2:49 PM EDT Temperature 36.4 ??C (97.6 ??F) 02/27/2025 2:49 PM ED T Respiratory Rate 20 02/27/2025 2:49 PM EDT Oxygen Saturation 99% 02/27/2025 2:49 PM EDT Inhaled Oxygen Concentration - - Weight - - Height - - Body Mass Index - - Plan of Treatment Health Maintenance Due Date Last Done Comments Hepatitis C Virus Screening 2002 HIV Screening 2015 HPV Vaccines (1 - 3-dose series) 2017 DTaP/Tdap/Td Vaccines (1 - Tdap) 2021 Hepatitis B Vaccines (1 of 3 - 19+ 3-dose series) 2021 Pap Smear (Ages 21-65) 2023 COVID-19 Vaccine ( season) 2024 09/01/2022, 10/24/2021, 03/09/2021, Additional history exists Influenza Vaccine 05/28/2025 Pneumococcal Vaccine: Pediatric (0-5 Years) and At-Risk Patients (6 to 49 Years) Aged Out No longer eligible based on patient's age to complete [place] [id number] [facility] Care Teams Poultry Helper Relationship Specialty Start Date End Date Jenn Yates MD [address] [place], [place] [address] [address] PCP - General Internal Medicine 02/27/25
--- OUTSIDE RECORDS SUMMARY | 2025-03-08 11:23 | XMS_ITS | Clinical Summary ---
Author Organization [facility] ity Address [address] [place] [address] Care Team Providers Care Counter Hop Name Role Phone Unavailable Primary Care Provider [...] (1 - 3-dose series) 2017 Meningococcal B Vaccine (1 o f 2 - Standard) 2018 DTaP,Tdap,and Td Vaccines (1 - Tdap) 2021 Hepatitis B Vaccines (1 of 3 - 19+ 3-dose series) 2021 Cervical Cancer Screening: P ap Smear 2023 COVID-19 Vaccine ( - 2023-2 5 season) 2024 Depression Screening 08/10/2024 HIV Screening 08/10/2024 Hepatitis C Screening 08/10/2024 Social Influencers of Health Screening 08/10/2024 Influenza Vaccine (Season Ended) 2025 HIB Vaccines Aged Out No longer eligi [...]
== END 2025-03-08 10:38 | disposition home or self-care (01) ==
LOC: HO.HOP 10:37
PROVIDERS: PCP Pediatrics Adolescent Medicine; Visit Provider Clinical Nurse Specialist Psychiatric/Mental Health
DX: F90.0 Attention-deficit hyperactivity disorder, predominantly inattentive type (principal); R48.0 Dyslexia and alexia; F41.1 Generalized anxiety disorder; F44.5 Conversion disorder with seizures or convulsions; F40.10 Social phobia, unspecified
CPT/HCPCS: 98006

== ENCOUNTER 2025-05-10 10:37 | Outpatient (AMB) | payer OTHER, SELFPAY ==
--- NOTE | 2025-05-10 10:16 | MHC.OFFVISPS ---
Intake Intake Visit Reasons: depression Solid Tire Tuber Machine Operator Required: No Allergies No Known Allergies Allergy (Verified 12/30/23 10:36) Medication List - Last Reconciled 05/10/25 by Kaylah Alaniz APRN amitriptyline 30 mg (3 x 10 mg) PO BEDTIME betamethasone dipropionate 0.05% appl topical dextroamphetamine-amphetamine 10 mg ER 1 cap PO QAM 60 days dextroamphetamine-amphetamine 5 mg (Adderall) 5 mg PO DAILY 60 days lorazepam 1 mg PO BID PRN 15 days valacyclovir 500 mg PO BID HPI- Psychiatric Chief Complaint: depression HPI Narrative: pt reports mood and functioning stable; she has had some low mood 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 She is med compliant; she reports no side effects; she reports no psychogenic seizures in months. She denies SI or HI. She does describe possible hypoglycemia; she has seen her PCP and had bloodwork- she tells me it came back normal; we discussed nutrition and hydration to prevent dizziness/dehydration. Past Psychiatric History: [place], dx with psychogenic seizures. Pt seen outpatient since 2018 by this adjusto writer operator - came to treatment reporting the following: depression, grief, sleep disruption, body image distortion, disordered eating always in special education classes; learned well with support; pt is dyslexic, cognitive disorder, executive functioning disorder. very high anxiety, always stressed and worried. achieving high but high cost. constantly anxious, talking to people makes her anxious. difficulty being around others don't like to be around others. feels depressed, sad. passive SI foggy thinking; night terrors- 1-2 times a week sometimes wake with fear; eating do symptoms- started losing a lot of weight - was restricting food. Began before covid. excessive working out. eating only 900 leonel per day and work out for 4 hours. was feeling faint. Working on eating better- seeing a jackhammer operator. eating approx 1200 leonel. Continues outpatient therapy with Aubree Jules [facility] Pt started therapy with Aurora Jules at age 11 after losing her father due to brain cancer. Pts grief complicated by father's violent behavior from brain cancer. Subjective Subjective Subjective Medication Compliance: Yes Side effects from medications: No Review of Systems Medical Review of Systems: unchanged Mental Status Exam Mental Status Exam Patient Appearance: Well Grooomed and Appropriate Patient Orientation: Person, Place, Time and Situation Level of Consciousness: Awake and Appropriate Patient Behavior: Appropriate, Talkative and Good Eye Contact Mood Description: Flat Affect Description: Flat Patient Cognition Impaired: No Ability to Follow Directions: Good Speech Pattern: Clear and Appropriate Memory Description: Intact Hallucinations: None Delusions: Not Present Thought Process: Intact and Goal Oriented Thought Content: positive for Intact and positive for Goal Oriented Judgement: Fair Telehealth Telehealth Telehealth Platform: Other (please specify) ([employer]) Location of provider rendering services: practice address Location of patient: address on file Patient Identification confirmed using: Name, : Yes Telehealth method: video Patient verbally consented to treatment: Yes Patient verbally consented to billing insurance company: Yes Patient informed of any privacy concerns related to visit: Yes Minutes spent on Phone/Video with Pt.: 30 Assessment and Plan Assessment & Plan (1) ADHD (attention deficit hyperactivity disorder): Status: Acute Qualifiers: Attention deficit-hyperactivity disorder type: predominantly inattentive Qualified Code(s): F90.0 - Attention-deficit hyperactivity disorder, predominantly inattentive type Code(s): F90.9 - Attention-deficit hyperactivity disorder, unspecified type (2) Generalized anxiety disorder: Status: Acute Code(s): F41.1 - Generalized anxiety disorder (3) Psychogenic nonepileptic seizure: Status: Acute Code(s): F44.5 - Conversion disorder with seizures or convulsions (4) Social anxiety disorder: Status: Acute Code(s): F40.10 - Social phobia, unspecified Medications: Refilled dextroamphetamine-amphetamine 10 mg ER for ADHD 1 cap PO QAM 60 caps 0RF 60 days Counseling and coordination of Care Pt. Self Management counseling: Maintenance-social rhythm, Med illness tx adherence, Mod caffeine/ETOH intake, Nutrition education and improvement, Sleep hygiene and General coping skills Medication management counseling: Effectiveness, Side effects, Dosing range, Duration, Drug interaction and Adherence Diagnosis and Prognosis Counseling: Accuracy of diagnosis, Prognosis over time, Impact of diagnosis on life functions, Impact of family relationship, Problematic behaviors secondary to diagnosis and Adequacy of current interventions Details: I spent 38 minutes reviewing the record, seeing the patient and documenting in the medical record. Counseling provided to the patient/caregiver as outlined below. Addressed patient/caregiver concerns regarding current medication regime including effective adherence. Addressed patient/caregiver concerns regarding diagnosis and prognosis including accuracy of diagnosis, prognosis over time, impact of diagnosis. Addressed patient/caregiver concerns regarding impact of recent stressors. [facility] Social History: lives with mother; Pt at [facility]; one of 3 sibs; one sibling has autism; father from brain tumor when pt age 11. Substance History: none Trauma History: loss of father age 11 after illness Coding Level of Care Code Tele Est Pt Level 4 (63404) Diagnoses Attention deficit hyperactivity disorder (ADHD), predominantly inattentive type F90.0 Attention deficit-hyperactivity disorder type: predominantly inattentive Generalized anxiety disorder F41.1 Psychogenic nonepileptic seizure F44.5 Social anxiety disorder F40.10
--- OUTSIDE RECORDS SUMMARY | 2025-05-10 11:29 | XMS_ITS ---
Author Name [facility] Organization Unknown History of Medication Use Medication Directions Dispensed Refills Start Date End Date Status doxycycline (MONODOX) 100 MG capsule Take 2 capsules (200 mg total) by mouth 1 time. 5 02/29/20 25 active azithromycinTake 1 tablet (oral) 1 time per day for 5 days (Take 2 tablets day [id number] time per [id number] mg 4 active LORazepam (ATIVAN) 2 MG/ML injection 1 mg 1 mg, Intravenous, Once, On Sat04/27/24 at 2145, For 1 dose 4 04/28/20 24 completed amitriptyline (ELAVIL) 10 MG tablet Take 20 mg by mouth daily 2 active cyproheptadine (PERIACTIN) 4 mg tablet Take 4 mg by mouth after dinner active Allergies Allergen Reaction Severity Comment Documented Date Source Statu s MOLD [facility] POLYOXYETHYLATED STEARYL ALCOH[facility] Problem Status Onset Date Problem Type Date of Resolution Source Tick bite of right knee, initial encounter active EncounterDiagnosisAct [facility] Pharyngitis, acute streptococcal active 2024-06-06 ProblemAct [facility] COVID-19 active 2024-06-06 ProblemAct [facility] Herpesviral infection, unspecified active ProblemAct [facility] Attention-deficit hyperactivity disorder, unspecified type active ProblemAct [facility] *Contact/suspected exposure COVID- active 2024-06-06 ProblemAct [facility] Migraine without aura, not intractable, without status migrainosus active ProblemAct [facility] Fibromyalgia active ProblemAct [facility] S[facility] Hypokalemia active EncounterDiagnosisAct [facility] Seizure disorder (HCC) active EncounterDiagnosisAct [facility] Mild anemia active EncounterDiagnosisAct [facility] Encounters Encounter Type Encounter Reason Primary Diagnosis Location Date Ambulatory Other Other [facility] 02/27/2025 Ambulatory [facility] 06/06/2024 Emergency Epilepsy, unspecified, not intractable, without status epilepticus Epilepsy, unspecified, not intractable, without status epilepticus [facility] 04/27/2024 Ambulatory [facility] 04/04/2022 Care Team Organization Name Specialty Phone Email Start Date End [email or web address] 02/27/2025 03/28/2025 [email or web address] 02/27/2025 [email or web address] 02/27/2025 [facility] Not Found Primary Care 06/07/2024 [facility] Not [facility] Primary Care 06/06/2024 [facility] 04/28/2024 [facility] 04/28/2024 [facility] KEIRA BROWN [facility] 04/11/2022
--- OUTSIDE RECORDS SUMMARY | 2025-05-10 11:29 | XMS_ITS | Clinical Summary ---
Author Organization [facility] Address [address] [place] [address] Care Team Providers Care Railroad Shop Inspector Name Role Phone Unavailable Primary Care [...] 92 04/27/2024 9:39 PM EDT Temperature 36.8 C (98.2 F) 04/27/2024 9:39 PM EDT Respiratory Rate 15 04/27/2024 9:39 PM EDT [...] (P ap Smear) 2023 Influenza Vaccine (#1) 2025 Pneumococcal Vaccine Aged Out No long er eligible based on patient's age to complete this topic RSV Ped < 20 months Aged Out No longe r eligible based on patient's age to complete this topic
--- OUTSIDE RECORDS SUMMARY | 2025-05-10 11:29 | XMS_ITS | Clinical Summary ---
Author Organization [facility] Address [address] [place] [address] Care Team Providers Care Concrete Wall Grinder Operator Name Role Phone Jenn Yates MD Primary Care Provider [phone] Allergies No known active allergies Medications No known medications Active Problems No known active problems Encounters Date Type Department Care Team Description 02/27/2025 2:35 PM EDT Office Visit [facility] [address] [place] [address] Leonard Jenkins MD Servello, Aldo R II PAYamile Tick bite of right knee, initial encounter [...] 62 02/27/2025 2:49 PM EDT Temperature 36.4 C (97.6 F) 02/27/2025 2:49 PM EDT Respiratory Rate 20 02/27/2025 2:49 PM EDT [...] Pap Smear (Ages 21-65) 2023 COVID-19 Vaccine (2023- season) 2024 09/01/2022, 10/24/2021, 03/09/2021, Additional history exists Influenza Vaccine 05/28/2025 Pneumococcal Vaccine: Pediatric (0-5 Years) and At-Risk Patients (6 to 49 Years) Aged Out No longer eligible based on patient's age to complete this [place] [id number] [facility] Care Teams Concrete Wall Grinder Operator Relationship Specialty Start Date End Date Jenn Yates MD [address] [place] [address] [place] [address] PCP - General Internal Medicine 02/27/25
--- OUTSIDE RECORDS SUMMARY | 2025-05-10 11:29 | XMS_ITS | Clinical Summary ---
Author Organization [facility] ity Address [address] [place] [address] Care Team Providers Care Wafer Abrading Machine Tender Name Role Phone Unavailable Primary Care Provider [...] Influencers of Health Screening 08/10/2024 Influenza Vaccine (#1) 2025 HIB Vaccines Aged Out No longer [...] 5 Years) and At-Risk Patients (6 to 49 Years) Aged Out No longer eligible b ased on patient's age to complete this topic RSV Immunization Patients Un joaquín 20 months Aged Out No longer eligible b ased on patient's age to complete this topic Varicella Vaccines Aged Out No longer eligible based on patient's age to complete this topic
== END 2025-05-10 10:46 | disposition home or self-care (01) ==
LOC: HO.HOP 10:37
PROVIDERS: PCP Pediatrics Adolescent Medicine; Visit Provider Clinical Nurse Specialist Psychiatric/Mental Health
DX: F90.0 Attention-deficit hyperactivity disorder, predominantly inattentive type (principal); F41.1 Generalized anxiety disorder; F44.5 Conversion disorder with seizures or convulsions; F40.10 Social phobia, unspecified
CPT/HCPCS: 98006

== ENCOUNTER 2025-06-07 10:57 | Outpatient (AMB) | payer OTHER, SELFPAY ==
--- NOTE | 2025-06-07 10:35 | MHC.OFFVISPS ---
Intake Intake Visit Reasons: depression Allergies No Known Allergies Allergy (Verified 12/30/23 10:36) Medication List - Last Reconciled 06/07/25 by Kaylah Alaniz APRN amitriptyline 30 mg (3 x 10 mg) PO BEDTIME betamethasone dipropionate 0.05% appl topical dextroamphetamine-amphetamine 10 mg ER 1 cap PO QAM 60 days dextroamphetamine-amphetamine 5 mg (Adderall) 5 mg PO DAILY 60 days lorazepam 1 mg PO BID PRN 15 days valacyclovir 500 mg PO BID HPI- Psychiatric Chief Complaint: depression HPI Narrative: pt reports mood and functioning stable; she has had 2 episodes of pseudo seizure since march. she reports her mother and brother were with her; she had a long stressful day eeach time and had not rested or hydrated adequately; she is working on self care. She is med compliant; she reports no side effects; She denies SI or HI. She does describe possible hypoglycemia; she has seen her PCP and had bloodwork- she tells me it came back normal; we discussed nutrition and hydration to prevent dizziness/dehydration. Past Psychiatric History: [place] 2021, dx with psychogenic seizures. Pt seen outpatient since 2018 by this fiction writer - came to treatment reporting the following: depression, grief, sleep disruption, body image distortion, disordered eating always in special education classes; learned well with support; pt is dyslexic, cognitive disorder, executive functioning disorder. very high anxiety, always stressed and worried. achieving high but high cost. constantly anxious, talking to people makes her anxious. difficulty being around others don't like to be around others. feels depressed, sad. passive SI foggy thinking; night terrors- 1-2 times a week sometimes wake with fear; eating do symptoms- started losing a lot of weight - was restricting food. Began before covid. excessive working out. eating only 900 leonel per day and work out for 4 hours. was feeling faint. Working on eating better- seeing a hazardous substances engineer. eating approx 1200 leonel. Continues outpatient therapy with Aubree WAGNERSW Pt started therapy with Aurora Jules at age 11 after losing her father due to brain cancer. Pts grief complicated by father's violent behavior from brain cancer. Subjective Subjective Subjective Medication Compliance: Yes Side effects from medications: No Review of Systems Medical Review of Systems: unchanged Mental Status Exam Mental Status Exam Patient Appearance: Well Grooomed and Appropriate Patient Orientation: Person, Place, Time and Situation Level of Consciousness: Awake and Appropriate Patient Behavior: Appropriate, Talkative and Good Eye Contact Mood Description: Flat Affect Description: Flat Patient Cognition Impaired: No Ability to Follow Directions: Good Speech Pattern: Clear and Appropriate Memory Description: Intact Hallucinations: None Delusions: Not Present Thought Process: Intact and Goal Oriented Thought Content: positive for Intact and positive for Goal Oriented Judgement: Fair Telehealth Telehealth Telehealth Platform: Other (please specify) (Novatek[employer]) Location of provider rendering services: practice address Location of patient: other (workplace in [facility] ([facility]) ) Patient Identification confirmed using: Name, : Yes Telehealth method: video Patient verbally consented to treatment: Yes Patient verbally consented to billing insurance company: Yes Patient informed of any privacy concerns related to visit: Yes Minutes spent on Phone/Video with Pt.: 30 Assessment and Plan Assessment & Plan (1) ADHD (attention deficit hyperactivity disorder): Status: Acute Qualifiers: Attention deficit-hyperactivity disorder type: predominantly inattentive Qualified Code(s): F90.0 - Attention-deficit hyperactivity disorder, predominantly inattentive type Code(s): F90.9 - Attention-deficit hyperactivity disorder, unspecified type (2) Generalized anxiety disorder: Status: Acute Code(s): F41.1 - Generalized anxiety disorder (3) Psychogenic nonepileptic seizure: Status: Acute Code(s): F44.5 - Conversion disorder with seizures or convulsions (4) Social anxiety disorder: Status: Acute Code(s): F40.10 - Social phobia, unspecified Medications: Refilled amitriptyline 30 mg (3 x 10 mg) PO BEDTIME 270 tabs 1RF dextroamphetamine-amphetamine 5 mg (Adderall) Partial Fill upon patient request. For ADHD 5 mg PO DAILY 60 tabs 0RF 60 days dextroamphetamine-amphetamine 10 mg ER for ADHD 1 cap PO QAM 60 caps 0RF 60 days lorazepam 1 mg PO BID PRN 30 tabs 1RF panic attack(s) 15 days Counseling and coordination of Care Pt. Self Management counseling: Maintenance-social rhythm, Med illness tx adherence, Mod caffeine/ETOH intake, Nutrition education and improvement, Sleep hygiene and General coping skills Medication management counseling: Effectiveness, Side effects, Dosing range, Duration, Drug interaction and Adherence Diagnosis and Prognosis Counseling: Accuracy of diagnosis, Prognosis over time, Impact of diagnosis on life functions, Impact of family relationship, Problematic behaviors secondary to diagnosis and Adequacy of current interventions Details: I spent 35 minutes reviewing the record, seeing the patient and documenting in the medical record. Counseling provided to the patient/caregiver as outlined below. Addressed patient/caregiver concerns regarding current medication regime including effective adherence. Addressed patient/caregiver concerns regarding diagnosis and prognosis including accuracy of diagnosis, prognosis over time, impact of diagnosis. Addressed patient/caregiver concerns regarding impact of recent stressors. [facility] Social History: lives with mother; Pt at [facility]; one of 3 sibs; one sibling has autism; father from brain tumor when pt age 11. Substance History: none Trauma History: loss of father age 11 after illness Coding Level of Care Code Tele Est Pt Level 4 (88532) Diagnoses Attention deficit hyperactivity disorder (ADHD), predominantly inattentive type F90.0 Attention deficit-hyperactivity disorder type: predominantly inattentive Generalized anxiety disorder F41.1 Psychogenic nonepileptic seizure F44.5 Social anxiety disorder F40.10
--- OUTSIDE RECORDS SUMMARY | 2025-06-07 11:39 | XMS_ITS | Clinical Summary ---
Author Organization [facility] Address [address] [place] [id number] Care Team Providers Care Musical Performer Name Role Phone Jenn Yates MD Primary Care Provider [phone] Allergies No known active allergies Medications No known medications Active Problems No known active problems Social [...] Smear (Ages 21-65) 2023 COVID-19 Vaccine ( - 2023- season) 2024 09/01/2022, 10/24/2021, 03/09/2021, Additional history exists Influenza Vaccine 05/28/2025 Pneumococcal Vaccine: Pediatric (0-5 Years) and At-Risk Patients (6 to 49 Years) Aged Out No longer eligible based on patient's age to complete this topic Insurance [facility] Care Teams Musical Performer Relationship Specialty Start Date End Date Jenn Yates MD [address] [place] [address] [place] [address] PCP - General Internal Medicine 02/27/25
--- OUTSIDE RECORDS SUMMARY | 2025-06-07 11:39 | XMS_ITS | Clinical Summary ---
Author Organization [facility] ity Address [address] [place] [address] Care Team Providers Care Rheologist Name Role Phone Unavailable Primary Care Provider [...] Screening: P ap Smear 2023 COVID-19 Vaccine (1 - 2023-2 5 season) 2024 HIV Screening 08/10/2024 Hepatitis C Screening 08/10/2024 Social Influencers of Health Screening 08/10/2024 Depression Screening 10/28/2024 Influenza Vaccine (#1) 2025 HIB Vaccines Aged [...]
--- OUTSIDE RECORDS SUMMARY | 2025-06-07 11:39 | XMS_ITS | Clinical Summary ---
Author Organization [facility] Address [address] [place] [address] Care Team Providers Care Copping Machine Operator Name Role Phone Unavailable Primary Care Provider [...]
== END 2025-06-07 10:57 | disposition home or self-care (01) ==
LOC: HO.HOP 10:57
PROVIDERS: PCP Pediatrics Adolescent Medicine; Visit Provider Clinical Nurse Specialist Psychiatric/Mental Health
DX: F90.0 Attention-deficit hyperactivity disorder, predominantly inattentive type (principal); F41.1 Generalized anxiety disorder; F44.5 Conversion disorder with seizures or convulsions; F40.10 Social phobia, unspecified
CPT/HCPCS: 98006

== ENCOUNTER 2025-07-13 14:41 | Outpatient (AMB) | payer OTHER, SELFPAY ==
--- NOTE | 2025-07-13 14:08 | A.OFFPSYCH_ITS ---
Intake Intake Visit Reasons: depression Service Loss Control Consultant Required: No Allergies No Known Allergies Allergy (Verified 12/30/23 10:36) Medication List - Last Reconciled 07/13/25 by Kaylah Alaniz APRN amitriptyline 30 mg (3 x 10 mg) PO BEDTIME betamethasone dipropionate 0.05% appl topical dextroamphetamine-amphetamine 10 mg ER 1 cap PO QAM 60 days dextroamphetamine-amphetamine 5 mg (Adderall) 5 mg PO DAILY 60 days lorazepam 1 mg PO BID PRN 15 days valacyclovir 500 mg PO BID HPI- Psychiatric Chief Complaint: depression HPI Narrative: She has been struggling more with anxiety and depression. she has been disappointed to hear that her college dropped the title 9 investigation. She is working 10 hour shifts; She is feeling very stressed with work. She is working o n self care. She is med compliant; She reports no side effects; She denies SI or HI. she does feel discouraged and at times hopeless. We discussed PHP for more support but she feels she can not miss work right now. She continues in therapy Past Psychiatric History: [place] 2021, dx with psychogenic seizures. Pt seen outpatient since 2018 by this pattern chart writer - came to treatment reporting the following: depression, grief, sleep disruption, body image distortion, disordered eating always in special education classes; learned well with support; pt is dyslexic, cognitive disorder, executive functioning disorder. very high anxiety, always stressed and worried. achieving high but high cost. constantly anxious, talking to people makes her anxious. difficulty being around others don't like to be around others. feels depressed, sad. passive SI foggy thinking; night terrors- 1-2 times a week sometimes wake with fear; eating do symptoms- started losing a lot of weight - was restricting food. Began before covid. excessive working out. eating only 900 leonel per day and work out for 4 hours. was feeling faint. Working on eating better- seeing a construction job cost estimator. eating approx 1200 leonel. Continues outpatient therapy with Aubree Jules [facility] Pt started therapy with Aurora Jules at age 11 after losing her father due to brain cancer. Pts grief complicated by father's violent behavior from brain cancer. Subjective Subjective Subjective Medication Compliance: Yes Side effects from medications: No Review of Systems Medical Review of Systems: unchanged Mental Status Exam Mental Status Exam Patient Appearance: Well Grooomed and Appropriate Patient Orientation: Person, Place, Time and Situation Level of Consciousness: Awake and Appropriate Patient Behavior: Appropriate, Talkative and Good Eye Contact Mood Description: Flat Affect Description: Flat Patient Cognition Impaired: No Ability to Follow Directions: Good Speech Pattern: Clear and Appropriate Memory Description: Intact Hallucinations: None Delusions: Not Present Thought Process: Intact and Goal Oriented Thought Content: positive for Intact and positive for Goal Oriented Judgement: Fair Telehealth Telehealth Telehealth Platform: Other (please specify) Location of provider rendering services: practice address Location of patient: other (workplace in the [facility]) Patient Identification confirmed using: Name, : Yes Telehealth method: video Patient verbally consented to treatment: Yes Patient verbally consented to billing insurance company: Yes Patient informed of any privacy concerns related to visit: Yes Minutes spent on Phone/Video with Pt.: 28 Assessment and Plan Assessment & Plan (1) ADHD (attention deficit hyperactivity disorder): Status: Acute Qualifiers: Attention deficit-hyperactivity disorder type: predominantly inattentive Qualified Code(s): F90.0 - Attention-deficit hyperactivity disorder, predominantly inattentive type Code(s): F90.9 - Attention-deficit hyperactivity disorder, unspecified type (2) Generalized anxiety disorder: Status: Acute Code(s): F41.1 - Generalized anxiety disorder (3) Psychogenic nonepileptic seizure: Status: Acute Code(s): F44.5 - Conversion disorder with seizures or convulsions (4) Social anxiety disorder: Status: Acute Code(s): F40.10 - Social phobia, unspecified Plan increase adderall XR 10mg to BID 6am and noon continue other meds followup in 4 weeks Medications: Changed From dextroamphetamine-amphetamine 10 mg ER for ADHD 1 cap PO QAM 60 days 60 caps 0RF F90.0 - Attention-deficit hyperactivity disorder, predominantly inattentive type To dextroamphetamine-amphetamine 10 mg ER for ADHD; take one cap at 6am and one at noon daily 1 cap PO BID 120 caps 0RF 60 days F90.0 - Attention-deficit hyperactivity disorder, predominantly inattentive type Counseling and coordination of Care Pt. Self Management counseling: Maintenance-social rhythm, Med illness tx adherence, Mod caffeine/ETOH intake, Nutrition education and improvement, Sleep hygiene and General coping skills Medication management counseling: Effectiveness, Side effects, Dosing range, Duration, Drug interaction and Adherence Diagnosis and Prognosis Counseling: Accuracy of diagnosis, Prognosis over time, Impact of diagnosis on life functions, Impact of family relationship, Problematic behaviors secondary to diagnosis and Adequacy of current interventions Details: I spent 35 minutes reviewing the record, seeing the patient and documenting in the medical record. Counseling provided to the patient/caregiver as outlined below. Addressed patient/caregiver concerns regarding current medication regime including ef fective adherence. Addressed patient/caregiver concerns regarding diagnosis and prognosis including accuracy of diagnosis, prognosis over time, impact of diagnosis. Addressed patient/caregiver concerns regarding impact of recent stressors. [facility] Social History: lives with mother; Pt at [facility]; one of 3 sibs; one sibling has autism; father from brain tumor when pt age 11. Substance History: none Trauma History: loss of father age 11 after illness Coding Level of Care Code Tele Est Pt Level 4 (72876) Diagnoses Attention deficit hyperactivity disorder (ADHD), predominantly inattentive type F90.0 Attention deficit-hyperactivity disorder type: predominantly inattentive Generalized anxiety disorder F41.1 Psychogenic nonepileptic seizure F44.5 Social anxiety disorder F40.10
--- OUTSIDE RECORDS SUMMARY | 2025-07-13 18:22 | XMS_ITS | Clinical Summary ---
Author Organization [facility] Address [address] [place] [address] Phone Care Team Providers Care Airplane Pilot Commercial Name Role Phone Pcp, Unknown Primary Care Provider Unavailabl e Allergies Active Allergy Reactions Criticality Noted Date Comments Mold Extracts 10/10/2022 Ethyl Alcohol 10/10/2022 Medications dextroamphetamin e-amphetamine (ADDERALL) 10 mg Tab tablet Take 10 mg by mouth. 11/19/2022 Active amitriptyline (ELAVIL) 10 MG tablet Take 20 mg by mouth daily. 01/11/2022 Active Active Problems No known active problems Social History Tobacco Use Types Packs/Day Years Used Date Smoking Tobacco: Never Smokeless Tobacco: Never Tobacco Cessation:Counseling Given: Not Answered Alcohol Use Standard Drinks/Week Comments Never 0 (1 standard drink = 0.6 oz pur e alcohol) Education Answer Date Recorded Are you interested in more education? Not on ade e 02/23/2023 Are you concerned about learning? Not on file 02/23/2023 No 02/23/2023 No 02/23/2023 Digital Access Answer Date Recorded No 03/26/2023 No 03/26/2023 Reliable internet access at home? Not on file 03/26/2023 Device with a working camera? Not on file Intimate Partner Violence Answer Date R ecorded Are you denied basic needs s uch as food, clothing, or medical care? No 02/11/2023 In the past 12 months have y ou been in a relationship with a person who hurts, threatens, or tries to control you? No 02/11/2023 Are you denied basic needs s uch as food, clothing, or medical care? No 02/11/2023 In the past 12 months have y ou been in a relationship with a person who hurts, threatens, or tries to control you? No 02/11/2023 Comments Unknown Sex and Gender Information Value Date Recorded Sex Assigned at Female 02/11/2023 2:10 AM EDT Legal Sex Female 2:56 PM EST Gender Identity Female 02/11/2023 2:10 AM EDT Sexual Orientation Not on file Last Filed Vital Signs Vital Sign Reading Time Taken Comments Blood Pressure 118/83 02/11/2023 1:30 AM EDT Pulse 87 02/11/2023 1:30 AM EDT Temperature 36.5 C (97.7 F) 02/11/2023 1:30 AM EDT Respiratory Rate 15 02/11/2023 1:30 AM EDT Oxygen Saturation 96% 02/11/2023 1:30 AM EDT Inhaled Oxygen Concentration - - Weight 61.2 kg (135 lb) 10/10/2022 3:07 PM EST Height 170.2 cm (5' 7 ) 10/10/2022 3:07 PM EST Body Mass Index 21.14 10/10/2022 3:07 PM EST Plan of Treatment Health Maintenance Due Date Last Done Comments Adult Td,Tdap Booster 2002 DEPRESSION SCREENING 2014 SMOKING Hx and SMOKELESS TOB ACCO SCREENING 2015 HPV VACCINES (1 - 3-dose series) 2017 CHLAMYDIA SCREENING 2018 MENINGOCOCCAL VACCINES (B) ( 1 of 2 - Standard) 2018 HEPATITIS C SCREENING 2020 HIV ONE-TIME SCREENING (18-6 5 YEARS) 2020 PAP SMEAR 2023 INFLUENZA VACCINE (#1) 2025 COVID-19 VACCINE ( - 2023-2 5 season) 2025 HEPATITIS A VACCINES Aged Out No long er eligible based on patient's age to complete this topic HIB VACCINES Aged Out No longer eligi ble based on patient's age to complete this topic MENINGOCOCCAL VACCINES (ACWY) Aged Out No longer eligible based on patient's age to complete this topic PNEUMOCOCCAL VACCINES (0-49 years) Aged Out No longer eligible based on patient's age to complete this topic Medical Devices Not on file Insurance [employer] POS NAVIGATOR POS NAVIGATOR POS Care Teams Airplane Pilot Commercial Relationship Specialty Start Date End Date Pcp, Unknown PCP - General 10/10/22 Additional Source Comments The information contained in this document represents components of the legal health record. It is not the complete legal health record.[facility]
--- OUTSIDE RECORDS SUMMARY | 2025-07-13 18:22 | XMS_ITS | Clinical Summary ---
Author Organization [facility] ity Address [address] [place] [address] Care Team Providers Care Wellness Spa Manager Name Role Phone Unavailable Primary Care [...] Cervical Cancer Screening: P ap Smear 2023 HIV Screening 08/10/2024 Hepatitis C Screening 08/10/2024 Social Influencers of Health Screening 08/10/2024 Depression Screening 10/28/2024 COVID-19 Vaccine (1 - 2023-2 5 season) 2025 Influenza Vaccine (#1) 2025 HIB Vaccines Aged [...]
--- OUTSIDE RECORDS SUMMARY | 2025-07-13 18:22 | XMS_ITS | Clinical Summary ---
Author Organization [facility] Address [address] [place] [address] Care Team Providers Care Whizzer Hand Name Role Phone Carl Kang MD Primary Care Provider [phone] Source Comments Please note that some or [...] so, obtain the minor's consent prior to disclosure.[facility] Allergies Active Allergy Reactions Criticality Noted [...] 88 04/02/2022 11:30 AM EDT Temperature 36.7 C (98 F) 04/02/2022 11:30 AM EDT Respiratory Rate - - Oxygen [...] SCREENING 2015 COVID-19 Vaccine (2023-2 5 season) 2025 INFLUENZA (#1) 2025 NIRSEVIMAB VACCINES UNDER 8 MONTHS Aged Out No longer eligible based on patient's age to complete this topic Insurance [address]len [id number] HMO Care Teams Whizzer Hand Relationship Specialty Start Date End Date Calr Kang MD [address] [place] [address] [place] [id number] PCP - General Adolescent Medicine 01/09/22
--- OUTSIDE RECORDS SUMMARY | 2025-07-13 18:22 | XMS_ITS | Clinical Summary ---
Author Organization [facility] Address [address] [place] [address] Care Team Providers Care Atmospheric Technician Name Role Phone Jenn Yates MD Primary Care Provider [phone] Allergies No known active allergies Medications No [...] series) 2021 Pap Smear (Ages 21-65) 2023 Influenza Vaccine 05/28/2025 COVID-19 Vaccine (2024- season) 2025 09/01/2022, 10/24/2021, 03/09/2021, Additional history exists Pneumococcal Vaccine: Pediatric (0-5 Years) and At-Risk Patients (6 to 49 Years) Aged Out No longer eligible based on patient's age to complete this topic Insurance [facility] Care Teams Atmospheric Technician Relationship Specialty Start Date End Date Jenn Yates MD [address] [place] [address] [place] [id number] PCP - General Internal Medicine 02/27/25
== END 2025-07-13 14:42 | disposition home or self-care (01) ==
LOC: HO.HOP 14:41
PROVIDERS: PCP Pediatrics Adolescent Medicine; Visit Provider Clinical Nurse Specialist Psychiatric/Mental Health
DX: F90.0 Attention-deficit hyperactivity disorder, predominantly inattentive type (principal); F41.1 Generalized anxiety disorder; F44.5 Conversion disorder with seizures or convulsions; F40.10 Social phobia, unspecified
CPT/HCPCS: 98006

== ENCOUNTER 2025-08-17 11:57 | Outpatient (AMB) | payer OTHER, SELFPAY ==
--- NOTE | 2025-08-17 11:30 | MHC.OFFVISPS ---
Intake Intake Visit Reasons: depression Senior Shipping Clerk Required: No Allergies No Known Allergies Allergy (Verified 12/30/23 10:36) Medication List - Last Reconciled 08/17/25 by Kaylah Alaniz APRN amitriptyline 30 mg (3 x 10 mg) PO BEDTIME betamethasone dipropionate 0.05% appl topical dextroamphetamine-amphetamine 10 mg ER 1 cap PO BID 60 days dextroamphetamine-amphetamine 5 mg (Adderall) 5 mg PO DAILY 60 days lorazepam 1 mg PO BID PRN 15 days valacyclovir 500 mg PO BID HPI- Psychiatric Chief Complaint: depression HPI Narrative: Pt is seen via telehealth for follow up re: with anxiety and depression. She reports feeling good this week but says she has had a few weeks of feeling more depressed and anxious; she is working 2 jobs and recently got URI that made her asthma worse. she went to the ED several times. She is feeling much better now. She is feeling very stressed with work. She is working on self care. She is med compliant; She reports no side effects; She denies SI or HI. She continues in therapy Past Psychiatric History: [place] 2021, dx with psychogenic seizures. Pt seen outpatient since 2018 by this proposal writer - came to treatment reporting the following: depression, grief, sleep disruption, body image distortion, disordered eating always in special education classes; learned well with support; pt is dyslexic, cognitive disorder, executive functioning disorder. very high anxiety, always stressed and worried. achieving high but high cost. constantly anxious, talking to people makes her anxious. difficulty being around others don't like to be around others. feels depressed, sad. passive SI foggy thinking; night terrors- 1-2 times a week sometimes wake with fear; eating do symptoms- started losing a lot of weight - was restricting food. Began before covid. excessive working out. eating only 900 leonel per day and work out for 4 hours. was feeling faint. Working on eating better- seeing a orthopaedic nurse. eating approx 1200 leonel. Continues outpatient therapy with Aubree WAGNERSW Pt started therapy with Aurora Jules at age 11 after losing her father due to brain cancer. Pts grief complicated by father's violent behavior from brain cancer. Subjective Subjective Subjective Medication Compliance: Yes Side effects from medications: No Review of Systems Medical Review of Systems: unchanged Mental Status Exam Mental Status Exam Patient Appearance: Well Grooomed and Appropriate Patient Orientation: Person, Place, Time and Situation Level of Consciousness: Awake and Appropriate Patient Behavior: Appropriate, Talkative and Good Eye Contact Mood Description: Anxious, Flat and Sad Affect Description: Anxious, Flat and Sad Patient Cognition Impaired: No Ability to Follow Directions: Good Speech Pattern: Clear and Appropriate Memory Description: Intact Hallucinations: None Delusions: Not Present Thought Process: Intact and Goal Oriented Thought Content: positive for Intact and positive for Goal Oriented Judgement: Fair Telehealth Telehealth Telehealth Platform: [employer] Location of provider rendering services: practice address Location of patient: other (workplace in the [facility]) Patient Identification confirmed using: Name, : Yes Telehealth method: video Patient verbally consented to treatment: Yes Patient verbally consented to billing insurance company: Yes Patient informed of any privacy concerns related to visit: Yes Minutes spent on Phone/Video with Pt.: 28 Assessment and Plan Assessment & Plan (1) ADHD (attention deficit hyperactivity disorder): Status: Acute Qualifiers: Attention deficit-hyperactivity disorder type: predominantly inattentive Qualified Code(s): F90.0 - Attention-deficit hyperactivity disorder, predominantly inattentive type Code(s): F90.9 - Attention-deficit hyperactivity disorder, unspecified type (2) Generalized anxiety disorder: Status: Acute Code(s): F41.1 - Generalized anxiety disorder (3) Psychogenic nonepileptic seizure: Status: Acute Code(s): F44.5 - Conversion disorder with seizures or convulsions (4) Social anxiety disorder: Status: Acute Code(s): F40.10 - Social phobia, unspecified Plan increase adderall XR 10mg to BID 6am and noon continue other meds follow up in 4 weeks Medications: Refilled dextroamphetamine-amphetamine 10 mg ER for ADHD; take one cap at 6am and one at noon daily 1 cap PO BID 120 caps 0RF 60 days F90.0 - Attention-deficit hyperactivity disorder, predominantly inattentive type Counseling and coordination of Care Pt. Self Management counseling: Maintenance-social rhythm, Med illness tx adherence, Mod caffeine/ETOH intake, Nutrition education and improvement, Sleep hygiene and General coping skills Medication management counseling: Effectiveness, Side effects, Dosing range, Duration, Drug interaction and Adherence Diagnosis and Prognosis Counseling: Accuracy of diagnosis, Prognosis over time, Impact of diagnosis on life functions, Impact of family relationship, Problematic behaviors secondary to diagnosis and Adequacy of current interventions Details: I spent 30 minutes reviewing the record, seeing the patient and documenting in the medical record. Counseling provided to the patient/caregiver as outlined below. Addressed patient/caregiver concerns regarding current medication regime including effective adherence. Addressed patient/caregiver concerns regarding diagnosis and prognosis including accuracy of diagnosis, prognosis over time, impact of diagnosis. Addressed patient/caregiver concerns regarding impact of recent stressors. [facility] Social History: lives with mother; Pt at [facility]; one of 3 sibs; one sibling has autism; father from brain tumor when pt age 11. Substance History: none Trauma History: loss of father age 11 after illness Coding Level of Care Code Tele Est Pt Level 4 (75739) Diagnoses Attention deficit hyperactivity disorder (ADHD), predominantly inattentive type F90.0 Attention deficit-hyperactivity disorder type: predominantly inattentive Generalized anxiety disorder F41.1 Psychogenic nonepileptic seizure F44.5 Social anxiety disorder F40.10
--- OUTSIDE RECORDS SUMMARY | 2025-08-17 15:22 | XMS_ITS | Clinical Summary ---
Author Organization [facility] Address [address] [facility] [address] [place] [phone] Phone Care Team Providers Care Metal Tester Name Role Phone Pcp, Unknown Primary Care [...] VACCINE (#1) 2025 COVID-19 VACCINE ( - 2024-2 6 season) 2025 HEPATITIS A VACCINES Aged Out [...] POS NAVIGATOR POS NAVIGATOR POS Care Teams Metal Tester Relationship Specialty Start Date End Date Pcp, Unknown PCP - General 10/10/22 Additional Source Comments The information contained in this document represents components of the legal health record. It is not the complete legal health record.[facility]
--- OUTSIDE RECORDS SUMMARY | 2025-08-17 15:22 | XMS_ITS | Clinical Summary ---
Author Organization [facility] Address [address] [place] [id number] Care Team Providers Care Digital Imaging Technician Name Role Phone Jenn Yates MD Primary Care Provider [phone] Allergies No known active allergies Medications No [...] patient's age to complete this topic Insurance [facility] Care Teams Digital Imaging Technician Relationship Specialty Start Date End Date Jenn Yates MD [address] [place] [address] [place] [address] PCP - General Internal Medicine 02/27/25
--- OUTSIDE RECORDS SUMMARY | 2025-08-17 15:22 | XMS_ITS | Clinical Summary ---
Author Organization [facility] Address [address] [place] [address] Care Team Providers Care Attending Radiologist Name Role Phone Unavailable Primary Care Provider [...]
--- OUTSIDE RECORDS SUMMARY | 2025-08-17 15:22 | XMS_ITS | Clinical Summary ---
Author Organization [facility] Address [address] [place] [address] Care Team Providers Care School Crossing Guard Supervisor Name Role Phone Carl Kang MD Primary Care Provider [phone] Source Comments Please note that some or [...] so, obtain the minor's consent prior to disclosure.[facility] Allergies Active Allergy Reactions Criticality Noted [...] age to complete this topic Insurance Kaylen [id number] HMO Care Teams School Crossing Guard Supervisor Relationship Specialty Start Date End Date Carl Kang MD [address] [place] [address] [place] [id number] PCP - General Adolescent Medicine 01/09/22
== END 2025-08-17 11:57 | disposition home or self-care (01) ==
LOC: HO.HOP 11:57
PROVIDERS: PCP Pediatrics Adolescent Medicine; Visit Provider Clinical Nurse Specialist Psychiatric/Mental Health
DX: F90.0 Attention-deficit hyperactivity disorder, predominantly inattentive type (principal); F41.1 Generalized anxiety disorder; F44.5 Conversion disorder with seizures or convulsions; F40.10 Social phobia, unspecified
CPT/HCPCS: 98006

== ENCOUNTER 2025-09-28 15:11 | Outpatient (AMB) | payer OTHER, SELFPAY ==
--- NOTE | 2025-09-28 12:01 | A.OFFPSYCH_ITS ---
Intake Intake Visit Reasons: depression Back Tender Insulation Board Required: No Allergies No Known Allergies Allergy (Verified 12/30/23 10:36) Medication List - Last Reconciled 09/28/25 by Kaylah Alaniz APRN amitriptyline 30 mg (3 x 10 mg) PO BEDTIME betamethasone dipropionate 0.05% appl topical dextroamphetamine-amphetamine 10 mg ER 1 cap PO BID 60 days dextroamphetamine-amphetamine 5 mg (Adderall) 5 mg PO DAILY 60 days lorazepam 1 mg PO BID PRN 15 days valacyclovir 500 mg PO BID HPI- Psychiatric Chief Complaint: depression HPI Narrative: Pt is seen via telehealth for follow up re: with anxiety and depression. She reports feeling better this week but has had several weeks of difficulty; she describes chronic SI which she has not clearly disclosed inpast but rather has discussed episodic SI in past. Today she reports chronic intrusive thoughts of SI. She also reports that there were a few weeks where the intrusive SI was more intense and more detailed. She described thoughts of driving car into tree, drowning herself in a [place]. she states she would not and has not acted upon those thoughts. She made some changes to reduce stress; she is working only one job now and quit a job where she had a 45 min commute on top of 10-12 hour long days. She is working on self care. She is med compliant; She reports no side effects; She denies SI or HI. She continues in therapy. We discussed PHP for more support but she states she would feel worse if she was not working because the financial stress would be higher, She has reduced the adderall XR to just nce a day which she says has helped her mood as weel. We discussed the possibility of OCD driving the SI and she states she has wondered about that in past. Her brother has OCD. She has tried SSRIs in past but didn't like the side effects; she was a teen atthe time so we discused possibility of re-trial and she will think about it. Past Psychiatric History: [place] 2021, dx with psychogenic seizures. Pt seen outpatient since 2018 by this technical document writer - came to treatment reporting the following: depression, grief, sleep disruption, body image distortion, disordered eating always in special education classes; learned well with support; pt is dyslexic, cognitive disorder, executive functioning disorder. very high anxiety, always stressed and worried. achieving high but high cost. constantly anxious, talking to people makes her anxious. difficulty being around others don't like to be around others. feels depressed, sad. passive SI foggy thinking; night terrors- 1-2 times a week sometimes wake with fear; eating do symptoms- started losing a lot of weight - was restricting food. Began before covid. excessive working out. eating only 900 leonel per day and work out for 4 hours. was feeling faint. Working on eating better- seeing a auto body estimator. eating approx 1200 leonel. Continues outpatient therapy with Aubree Jules STOVE INSTALLER Pt started therapy with Aurora Jules at age 11 after losing her father due to brain cancer. Pts grief complicated by father's violent behavior from brain cancer. Subjective Subjective Medication Compliance: Yes Side effects from medications: No Review of Systems Medical Review of Systems: unchanged Mental Status Exam Mental Status Exam Patient Appearance: Well Grooomed and Appropriate Patient Orientation: Person, Place, Time and Situation Level of Consciousness: Awake and Appropriate Patient Behavior: Appropriate, Talkative and Good Eye Contact Mood Description: Anxious, Flat and Sad Affect Description: Anxious, Flat and Sad Patient Cognition Impaired: No Ability to Follow Directions: Good Speech Pattern: Clear and Appropriate Memory Description: Intact Hallucinations: None Delusions: Not Present Thought Process: Intact and Goal Oriented Thought Content: positive for Intact and positive for Goal Oriented Judgement: Fair Telehealth Telehealth Telehealth Platform: [facility] Location of provider rendering services: practice address Location of patient: other (at a friend home in [facility]) Patient Identification confirmed using: Name, : Yes Telehealth method: video Patient verbally consented to treatment: Yes Patient verbally consented to billing insurance company: Yes Patient informed of any privacy concerns related to visit: Yes Minutes spent on Phone/Video with Pt.: 25 Assessment and Plan Assessment & Plan (1) ADHD (attention deficit hyperactivity disorder): Status: Acute Qualifiers: Attention deficit-hyperactivity disorder type: predominantly inattentive Qualified Code(s): F90.0 - Attention-deficit hyperactivity disorder, predominantly inattentive type Code(s): F90.9 - Attention-deficit hyperactivity disorder, unspecified type (2) Generalized anxiety disorder: Status: Acute Code(s): F41.1 - Generalized anxiety disorder (3) Psychogenic nonepileptic seizure: Status: Acute Code(s): F44.5 - Conversion disorder with seizures or convulsions (4) Social anxiety disorder: Status: Acute Code(s): F40.10 - Social phobia, unspecified Plan Rule out OCD decrease adderall XR 10mg once a day review of php option and crisis numbers follow up in 4 weeks Medications: New dextroamphetamine-amphetamine 10 mg ER (Adderall XR) Partial Fill upon patient request. 10 mg PO DAILY 30 caps 0RF F90.0 - Attention-deficit hyperactivity disorder, predominantly inattentive type Counseling and coordination of Care Pt. Self Management counseling: Maintenance-social rhythm, Med illness tx adherence, Mod caffeine/ETOH intake, Nutrition education and improvement, Sleep hygiene and General coping skills Medication management counseling: Effectiveness, Side effects, Dosing range, Duration, Drug interaction and Adherence Diagnosis and Prognosis Counseling: Accuracy of diagnosis, Prognosis over time, Impact of diagnosis on life functions, Impact of family relationship, Problematic behaviors secondary to diagnosis and Adequacy of current interventions Details: I spent 30 minutes reviewing the record, seeing the patient and documenting in the medical record. Counseling provided to the patient/caregiver as outlined below. Addressed patient/caregiver concerns regarding current medication regime including effective adherence. Addressed patient/caregiver concerns regarding diagnosis and prognosis including accuracy of diagnosis, prognosis over time, impact of diagnosis. Addressed patient/caregiver concerns regarding impact of recent stressors. [facility] Social History: lives with mother; Pt at [facility]; one of 3 sibs; one sibling has autism; father from brain tumor when pt age 11. Substance History: none Trauma History: loss of father age 11 after illness Coding Level of Care Code Tele Est Pt Level 4 (32879) Diagnoses Attention deficit hyperactivity disorder (ADHD), predominantly inattentive type F90.0 Attention deficit-hyperactivity disorder type: predominantly inattentive Generalized anxiety disorder F41.1 Psychogenic nonepileptic seizure F44.5 Social anxiety disorder F40.10
--- OUTSIDE RECORDS SUMMARY | 2025-09-28 16:55 | XMS_ITS | Clinical Summary ---
Author Organization [facility] Address [address] [place] [address] Care Team Providers Care Scientist Electronics Name Role Phone Carl Kang MD Primary Care Provider [phone] Source Comments Please note that some or [...] so, obtain the minor's consent prior to disclosure.[facility] Allergies Active Allergy Reactions Criticality Noted [...] age to complete this topic Insurance Kaylen [id number] HMO Care Teams Scientist Electronics Relationship Specialty Start Date End Date Carl Kang MD [address] [place] [address] [place] [phone] PCP - General Adolescent Medicine 01/09/22
--- OUTSIDE RECORDS SUMMARY | 2025-09-28 16:55 | XMS_ITS | Clinical Summary ---
Author Organization [facility] Address [address] [facility] [address] [place] [phone] Phone Care Team Providers Care Cut File Clerk Name Role Phone Pcp, Unknown Primary Care [...] POS NAVIGATOR POS NAVIGATOR POS Care Teams Cut File Clerk Relationship Specialty Start Date End Date Pcp, Unknown PCP - General 10/10/22 Additional Source Comments The information contained in this document represents components of the legal health record. It is not the complete legal health record.[facility]
--- OUTSIDE RECORDS SUMMARY | 2025-09-28 16:55 | XMS_ITS | Clinical Summary ---
Author Organization [facility] Address [address] [place] [address] Care Team Providers Care Dockworker Name Role Phone Unavailable Primary Care Provider [...]
--- OUTSIDE RECORDS SUMMARY | 2025-09-28 16:55 | XMS_ITS | Clinical Summary ---
Author Organization [facility] Address [address] [place] [address] Care Team Providers Care Pool Installer Name Role Phone Jenn Yates MD Primary Care Provider [phone] Allergies No known active allergies Medications No [...] patient's age to complete this topic Insurance [facility] Care Teams Pool Installer Relationship Specialty Start Date End Date Jenn Yates MD [address] [place] [address] [place] [address] PCP - General Internal Medicine 02/27/25
--- OUTSIDE RECORDS SUMMARY | 2025-09-28 16:55 | XMS_ITS | Clinical Summary ---
Author Organization [facility] Address [address] [place] [address] Care Team Providers Care Pharm Tech Name Role Phone Unavailable Primary Care Provider [...] Depression Screening 10/28/2024 COVID-19 Vaccine (1 - 2024-2 6 season) 2025 Influenza Vaccine (#1) 2025 RSV Immunization Adult Patie nts (1 - 1-dose 75+ series) 2077 HIB Vaccines Aged Out No longer eligi [...]
== END 2025-09-28 15:14 | disposition home or self-care (01) ==
LOC: HO.HOP 15:11
PROVIDERS: PCP Pediatrics Adolescent Medicine; Visit Provider Clinical Nurse Specialist Psychiatric/Mental Health
DX: F90.0 Attention-deficit hyperactivity disorder, predominantly inattentive type (principal); F41.1 Generalized anxiety disorder; F44.5 Conversion disorder with seizures or convulsions; F40.10 Social phobia, unspecified
CPT/HCPCS: 98006